=== PATIENT | male | born 1940 | race Caucasian/White ===

== ENCOUNTER 2017-07-23 12:45 | Outpatient (CLI) ==
--- NOTE | 2017-07-27 08:34 | HOLTER ---
PATIENT INFORMATION AND COMMENTS Attending Physician: SULEIMAN BROCK Indications: PVC'S __ Patient Medications: METFORMIN, NORCO, VITAMINS __ Pre-procedure Summary: Protocol: Standard Heart Rate Started: 07/23/17 1305 Minimum: 61 BPM Weight: 220 LBS Ended: 07/24/17 1209 Maximum: 137 BPM Height: 70" Duration: 23 HRS Average: 77 BPM _ INTERPRETATIONS/OBSERVATIONS: 1. BASIC RHYTHM: SINUS, RATE 60 BPM TO 135 BPM, AVERAGE 77 BPM 2. INFREQUENT PVC'S --ISOLATED 3. PAC'S --3% OF TOTAL BEATS SCANNED, NO ATRIAL TACHYARRHYTHMIAS 4. NO ST-T WAVE CHANGES FROM BASELINE 5. ACTIVITY LOG NOT MAINTAINED MTDD
== END 2017-07-23 12:46 | disposition home or self-care (01) ==
LOC: CAR 12:45
PROVIDERS: ATTEND Internal Medicine
DX: I49.3 Ventricular premature depolarization (principal)
CPT/HCPCS: 93005; 93010; 93227

== ENCOUNTER 2017-12-25 11:28 | Inpatient (IN) ==
[~2017-12-25 11:28] MED LIST: OXYCODONE PO PRN
[2017-12-25 12:41] VITALS: BMI 32.4
[2017-12-25] MEDS: OXYCODONE PO PRN ×2 (12:52→20:43)
[2017-12-25] MEDS ORDERED: NON-FORMULARY MEDICATION (Omega-3 Fatty Acids/Fish Oil [Fish Oil 1,000 Mg Capsule] 1,000 M PO SCH (15:00)
--- NOTE | 2017-12-25 15:59 | RS.PTINEVL ---
Subjective - Patient information Date of Evaluation: 12/25/17 Date of Arrival on Unit: 12/25/17 Admitted From:: Facility Transfer (from [facility]) Diagnosis: S/P left TKA on 12/21/17 Usual Living Arrangement: With Spouse Home Environment: House, Stairs (few), Rail Medical History: Diabetes (NIDDM) Medical History Comments:: Head injury in 1997 has left him with slurred speech and poor memory. Surgical History Comments:: right knee arthroscopy, Bilateral cataract sx 2016 Subjective Information/ Patient Comments:: Patient reports pain in both knees. Left knee hurts worse. States he did have pain medication approximately 1.5 hours ago. State she has burning in the jones surface of the left heel. States right knee is bad and will also require a TKA. - Level of function Prior to this admission, the patient could do the following:: Independent Selfcare, Independent ADL's, Independent Ambulation Current Level of Function: Partially Dependent Current Equipment Used at Home: None Interventions - Objective Patient Orientation: Person, Place, Time, Situation Observation: Left knee presents with clean incision. No drainage noted. Demonstrates bruising at the posterior distal thigh and posterior aspect of the knee joint. Sock removed and no redness or discoloration to the left heel is noted. Range of Motion - ROM Right Upper Extremity AROM: WFL's Left Upper Extremity AROM: WFL's Right Lower Extremity AROM: Slight limitation (right knee full extension to 100 degrees flexion) Left Lower Extremity AROM: Moderate limitation (Left knee -10 extension to 60 flexion) Muscle Strength - Muscle Strength Comments:: Right LE: hip 5/5, knee 4/5, ankle 4+/5. Left LE: hip 4+/5, knee 3+/ 5, ankle 4 to 4+/5. Sensation - Sensation Right Lower Extremity Sensation: Intact/Normal Left Lower Extremity Sensation: Intact/Normal Balance - Sitting Balance and Reactions Static Sitting Balance: Good Dynamic Sitting Balance: Good Sitting Equilibrium Reactions: Within Normal Limits Left, Within Normal Limit Right Sitting Protective Reactions: Within Normal Limits Left, Within Normal Limit Right - Standing Balance and Reactions Static Standing Balance: Fair (-) Dynamic Standing Balance: Fair (-) Functional Mobility - Bed Mobility Scooting: Min Assist, 1 person assist, Verbal Cues, Tactile Cues Supine to Sit: Min Assist, Mod Assist, Tactile Cues Sit to Supine: Mod Assist, 1 person assist, Verbal Cues, Tactile Cues Comments:: Patient given assistance with Left LE for bed mobility. - Transfers Sit to Stand: Mod Assist, 2 person assist, Verbal Cues, Tactile Cues Stand to Sit: Min Assist, Mod Assist, 1 person assist, Verbal Cues, Tactile Cues Stand Pivot Transfers: Min Assist, Mod Assist, 1 person assist, Verbal Cues, Tactile Cues Comments:: Patient demonstrates a great deal of difficult coming to stand at walker. Reports this is because both knees hurt so much. He stayed bent over, appearing to be straining for a while, before finally standing upright and appearing less stressed. - Safety Awareness Safety Awareness: Fair IVETTE INDEX SCORE: 10 Ambulation - Ambulation Weight Bearing Status: FWB Assistive Device Used: Rolling Walker Distance: 4-6 feet Assistance needed with Ambulation: Min Assist, Mod Assist, 2 person assist, Verbal Cues, Tactile Cues Gait Deviations: Shuffling gait, Step-to gait, Forward posture, Short stride, Lacks step continuity Ambulation Comments: Patient takes very small, quick steps. Unable to tolerate full weight bearing on either leg very long. Factors Affecting Ambulation: Decreased Balance, Pain, Weakness, Decreased ROM, Decreased Safety, Limited Endurance Treatment time - Time with patient Total treatment time: 24 (mins) Patient Education - Education Patient Education: Education of diagnosis Teaching Recipient: Patient Teaching Methods: Teach Back Method Used, Discussion, Demonstration Assessment - Assessment Problem List:: Decreased level of function, Requires training/education, Decreased safety/Risk of falls, Weakness, Pain limits previous level of function Rehab Potential: Good Further Therapy Indicated?: Yes Evaluation Complexity: HISTORY: Medium (previous head injury, bilateral knee pain), EXAM OF BODY SYSTEMS: Medium (limited bed mobility, transfers, amb, stairs), CLINICAL PRESENTATION: Medium, CLINICAL DECISION MAKING: Medium Short Term Goals GOAL #1: Sit to stand with min asst of one with VC's. Goal to be met by: 12/29/17 GOAL #2: Supine to sit with min asst of one with VC and tactile cues. Goal to be met by: 12/29/17 GOAL #3: Amb with RW 40 feet with min asst of one with good step length. Goal to be met by: 12/30/17 [facility] Goals GOAL #1: All bed mobility independent. Goal to be met by: 01/08/18 GOAL #2: All transfers independent, with good safety. Goal to be met by: 01/08/18 GOAL #3: Amb. with RW, independent, household distances with good safety. Goal to be met by: 01/08/18 Plan Plan of Care: Therapeutic EX, Therapeutic Activity, Self-Care/Home Management Modalities: Cold Pack/Cryotherapy Frequency of Treatment: 1-2 X day, as tolerated Duration of Treatment: 2 Weeks Anticipated Discharge Destination: Home Has the Physician been added for Co-signature?: Yes
[2017-12-25] MEDS: OMEGA-3 FISH OIL PO SCH ×2 (16:21→20:42)
[2017-12-25] MEDS: GLUCOPHAGE PO SCH (17:17)
[2017-12-25] MEDS: XARELTO PO SCH (17:18)
[2017-12-25] MEDS ORDERED: NON-FORMULARY MEDICATION (Metformin Hcl [Glucophage] 1,000 MG) PO SCH (17:30)
[2017-12-26] MEDS: OXYCODONE PO PRN ×2 (05:31→09:36)
[2017-12-26] MEDS: SYNTHROID PO SCH (06:02)
[2017-12-26] MEDS: GLUCOPHAGE PO SCH ×2 (08:38→17:15)
[2017-12-26] MEDS: OMEGA-3 FISH OIL PO SCH ×3 (08:38→20:33)
[2017-12-26] MEDS: VITAMIN D PO SCH (08:38)
[2017-12-26] MEDS ORDERED: NON-FORMULARY MEDICATION (Omega-3 Fatty Acids/Fish Oil [Fish Oil 1,000 Mg Capsule] 1,000 M PO SCH (09:00)
[2017-12-26] MEDS ORDERED: NON-FORMULARY MEDICATION (Levothyroxine Sodium [Synthroid] 200 MCG) PO SCH (09:00)
--- NOTE | 2017-12-26 16:59 | CT ---
EXAM: CT chest without contrast TECHNIQUE: Helical axial CT of the chest was performed without contrast with coronal and sagittal rec onstructions. COMPARISON: None HISTORY: Congestion FINDINGS: Lung parenchyma: There is no mass or nodule or large effusion or infiltrate. There is some minimal bi basilar scarring and/or atelectasis. Mediastinum: There are a few scattered mediastinal lymph nodes which are not particularly enlarged. T here are advanced coronary calcifications. There is no pericardial effusion. There is calcific athe rosclerosis of the aorta. There is no thoracic aortic aneurysm. Upper Abdomen: The proximal aspect of the infrarenal abdominal aorta is somewhat prominent measuring 3.1 cm. There is calcific atherosclerosis. There is a small calcification in the gallbladder possi olivia a small calcified stone or some sludge. There is a small hiatal hernia. There is old granulomato us disease in the liver. Osseous structures: Nothing acute. There are old upper right rib fractures. There are multiple thora cic vertebral bodies demonstrate some minimal chronic appearing vertebral body height loss with nothi ng acute. Surrounding soft tissues including the thyroid gland are normal. No supraclavicular or axillary adeno louise. IMPRESSION: 1. No acute abnormality in the chest. Specifically the lungs are clear and there is no mass lesions . 2. 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 3. Calcified stone or sludge in the gallbladder which does not appear inflamed. 4. Other miscellaneous findings as above
[2017-12-26] MEDS: XARELTO PO SCH (17:15)
[2017-12-27] MEDS: OXYCODONE PO PRN ×2 (00:34→20:18)
[2017-12-27] MEDS: SYNTHROID PO SCH (06:05)
[2017-12-27] MEDS: VITAMIN D PO SCH (08:58)
[2017-12-27] MEDS: OMEGA-3 FISH OIL PO SCH ×3 (08:58→20:18)
[2017-12-27] MEDS: GLUCOPHAGE PO SCH ×2 (08:58→17:14)
[2017-12-27] MEDS: XARELTO PO SCH (17:14)
[2017-12-27] MEDS ORDERED: MIRALAX PO STA (18:29)
[2017-12-28] MEDS: OXYCODONE PO PRN ×4 (01:11→22:22)
[2017-12-28] MEDS: SYNTHROID PO SCH (05:54)
[2017-12-28] MEDS: OMEGA-3 FISH OIL PO SCH ×3 (08:19→20:17)
[2017-12-28] MEDS: VITAMIN D PO SCH (08:19)
[2017-12-28] MEDS: GLUCOPHAGE PO SCH ×2 (08:19→17:05)
--- NOTE | 2017-12-28 09:21 | PN ---
DATE OF VISIT: 12/26/17 SUBJECTIVE: The patient is alert with good color and no distress. The patient was in a supine posture when I walked into the room. FACE: Symmetrical and equal with no facial weakness. NECK: No masses and no bruit. HEART: Normal sinus rhythm. Audible with good tones. LUNGS: Clear to auscultation mostly in the left. There is rales on the right lower 1/3. There is no wheezing. The chest CT will be done since he is not able to stand up so a PA and lateral chest x-ray could not be done. ABDOMEN: Soft and not tender. There is no thickening of the abdominal wall. LOWER EXTREMITIES: Left lower extremity is edematous with ecchymosis from the groin down to the foot. Anterior tibial pulses are still palpable in left foot and the posterior and anterior tibials are present in the right. CONDITION:Stable Rales are persistent right lower lobe. Chest CT today with contrast. ANGLE
--- NOTE | 2017-12-28 13:42 | PN ---
DATE OF VISIT: 12/27/17 SUBJECTIVE: 77 year old male admitted to [facility] post left TKR. The patient is alert and oriented times four, not dyspneic or tachypneic. The patient was snoring when I walked into the room after 6:00 this afternoon. Respirations were regular while he was sleeping. VITAL SIGNS: Temperature 97.5, pulse 91, blood pressure 144/73, respiratory rate 14, oxygen saturation 94 at room air. This patient early in the day had a 99.4 and yesterday afternoon had a temperature of 100 orally at 6:00pm. HEART: Audible and regular with good tones LUNGS: Fewer rales of the right lower base. CT chest did not show any pneumonic infiltrates LOWER EXTREMITIES: Left leg swelling is less. The swelling in the thigh also is less. No signs of infection in the incision. The patient had not had a bowel movement so he prescribed one dose of Miralax today. MTDD
--- NOTE | 2017-12-28 15:16 | HP ---
CHIEF COMPLAINT: Rehabilitation post left total knee replacement. SOURCE OF HISTORY: Patient and also records from the operating doctor. HISTORY OF PRESENT ILLNESS: The patient claimed to have had so much difficulty ambulating with the left knee. He can ambulate a very short distance with a prior narcotic analgesic medication. He did undergo left total knee replacement last Thursday, five days ago. The patient was transferred to this facility for rehabilitation. The patient was supposed to be transferred yesterday,however, because of the swelling of the left lower extremity involving the thigh, knee as well as leg and foot prevented the transfer. Doppler studies were done to rule out any DVT and the studies were negative for any thrombosis of the deep system. He was then transferred to this facility for the physical therapy and rehabilitation. PAST PERSONAL HISTORY: The patient had previous bilateral cataract surgery in 2016. The patient had an incident where a horse fell on him in 1997 producing a head injury. The patient had some palpitations, but did not know the diagnosis. The patient had a history of pneumonia in 1989 and also infrequent indigestion, plus umbilical hernia. He had a ankle sprain in . He had surgery to the left knee 12/21/17, as well as arthroscopy of the right knee. He is type II diabetes. He stopped smoking since 1985. He drinks 3 to 4 cans of beer every other day. The patient did have a colonoscopy more than 5 years ago. FAMILY HISTORY: Sister had hypertension, fibromyalgia and rheumatoid arthritis. History of his father is unknown to him. Mother had questionable lung carcinoma, TIA and at age 86. SOCIAL HISTORY: The patient is and resides with his . He stopped smoking in 1985, but still drinks alcohol three to four cans every other day. MEDICATIONS: Prior to admission to this hospital consisted of: Metformin 1000 mg twice a day Levothyroxine 200 mcg daily Vitamin D3 1,200 units daily Viagra 100 mg prn [place] 3 fatty acid 1,000 mg three times a day ALLERGIES: No known drug allergies. REVIEW OF SYSTEMS: CONSTITUTIONAL: The patient is alert with no fever and no chills. He is somewhat fatigued because of the operation. 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 VISUAL: Denies any blurred vision, double vision or transient loss of vision. AUDITORY: The patient's hearing is adequate and he denies any tinnitus, pain or drainage. RESPIRATORY: Denies any cough. No shortness of breath at supine. CARDIOVASCULAR: Denies any chest pain or chest tightness. GASTROINTESTINAL: Appetite is somewhat decreased, probably from the surgery, but no abdominal pain or change in bowel habits and no diarrhea. GENITOURINARY: Denies any frequency of urination, as well as pain. ENDOCRINE: The patient has no symptoms, but he has type II diabetes mellitus. INTEGUMENT: The patient has shinny skin on the left lower extremity from the edema, post TKR left side. There is no rash and no pruritus. HEMATOLOGIC: No history of prolonged bleeding from injuries. PSYCHIATRIC: Affect is normal. PHYSICAL EXAMINATION: GENERAL: We have a 77 year old male admitted to this facility for rehabilitation, post left TKR. VITAL SIGNS: On admission at 11:46 a.m. on 12/25/17 showed a temperature of 98.8 , orally, pulse of 88, blood pressure left 130/60, right 134/60, respiratory rate 16, no oxygen saturation done at that time. He is 5'9" and 219 pounds and 9.28 ounces. HEAD: Unremarkable. FACE: Symmetrical and equal with no redness and no facial weakness. EYES: Pupils equal/reactive to light. Conjunctivae not pale. Sclerae not icteric. MOUTH: Unremarkable. THROAT: No inflammation, tumors or exudate. NECK: No masses. No bruit. No tenderness. No rigidity. No venous distention at about 15 degree head elevation. CHEST: Symmetrical and equal with good expansion. LUNGS: Rales on the right lower one third, no wheezing. Breath sounds are slightly diminished. HEART: Audible and regular with good tones. No murmurs. ABDOMEN: Soft with no remarkable tenderness. No guarding. Bowel sounds are active. No masses palpable. EXTERNAL GENITALIA: Not examined. RECTAL: Not performed. LOWER EXTREMITIES: The right lower extremity has no edema. The anterior/ posterior tibials are palpable. The left lower extremity is edematous including the thigh down to the foot. Anterior tibial is present. A posterior tibial is difficult to palpate because of the significant edema. ASSESSMENT: 1. DEGENERATIVE OSTEOARTHRITIS LEFT KNEE, STATUS POST LEFT TOTAL KNEE REPLACEMENT FIVE DAYS AGO 2. DIABETES MELLITUS TYPE II 3. HISTORY OF HYPOTHYROIDISM, REPLACED. 4. HISTORY OF ERECTILE DYSFUNCTION 5. ELEVATED BMI OF 32.4. MTDD
--- NOTE | 2017-12-28 15:59 | RS.OTINEVL ---
Subjective - Patient information Date of Evaluation: 12/28/17 Date of Arrival on Unit: 12/25/17 Admitted From:: Facility Transfer (from [facility]) Usual Living Arrangement: With Spouse Living Arrangement Comments: Pt lives at home with his and says she will not help him. Home Environment: House, Stairs (few), Rail Medical History: Diabetes (NIDDM) Medical History Comments:: Head injury in 1997 has left him with slurred speech and poor memory. Surgical History: Knee Replacement Surgical History Comments:: right knee arthroscopy, Bilateral cataract sx 2016 Subjective Information/ Patient Comments:: "I was going to have the other knee done." - Level of function Prior to this admission, the patient could do the following:: Independent Selfcare, Independent ADL's, Independent Ambulation Current Level of Function: Dependent Current Equipment Used at Home: None Pain Assessment - Pain Pain Score: 6 Side: left Pain Location Body Site: Knee Pain Aggravating Factors: ADL's, Changing Position, Standing, Sitting, Walking Pain Alleviating Factors: Ice, Medication Interventions - Objective Patient Orientation: Person, Place, Time, Situation Observation: Pt LUE knee was placed on a pillow and patient' foot has pitting Edema. Pt was placed with an cold pack on the back of the knee due to edema. Interventions - ROM Right Upper Extremity AROM: WFL's Left Upper Extremity AROM: WFL's - Strength Right Upper Extremity Strength: Mild Weakness Left Upper Extremity Strength: Mild Weakness - Sensation Right Upper Extremity Sensation: Intact/Normal Left Upper Extremity Sensation: Intact/Normal Balance - Sitting Balance Static Sitting Balance: Fair Dynamic Sitting Balance: Fair - Standing Balance Static Standing Balance: Poor Dynamic Standing Balance: Poor - Comments Balance Assessment Comments: Pt having difficulty putting the Left heel on the floor. Balance is poor. ADL Skills - Self Feeding Self Feeding: Independent - Grooming Grooming: CGA - Bathing Bathing UE: Min Assist Bathing LE: Max Assist - Dressing Dressing UE: CGA Dressing LE: Mod Assist - Toilet Management Toileting Management: Max Assist, 2 person assist Functional Mobility - Bed Mobility Rolling R/L: CGA Scooting: CGA Supine to Sit: CGA Sit to Supine: CGA - Transfers Sit to Stand: Mod Assist, 2 person assist Stand to Sit: Mod Assist, 1 person assist Stand Pivot Transfers: Max Assist, 2 person assist - Ambulation Weight Bearing Status: WBAT Assistive Device Used: Standard Walker Assistance needed with Ambulation: Max Assist, 2 person assist - Safety Awareness Safety Awareness: Good IVETTE INDEX SCORE: 11 Additional Treatment Performed - Time with patient Total treatment time: 20 Activities Patient Interests:: Watching Television, Visiting/Socializing Patient Education Patient Education: Education of diagnosis, Body/Joint mechanics, Home Exercise Program, Home Safety, Education of Plan of Care Teaching Recipient: Patient Teaching Methods: Discussion Assessment Problem List:: Decreased level of function, Requires training/education, Decreased safety/Risk of falls, Weakness, Pain limits previous level of function Rehab Potential: Good Further Therapy Indicated?: Yes Evaluation Complexity: HISTORY: Medium, EXAM OF BODY SYSTEMS: Medium, CLINICAL DECISION MAKING: Medium Short Term Goals - Goals GOAL 1: Pt to complete functional mobility CGA with RW. Goal to be met by: 01/04/18 GOAL 2: Pt to increase BUE strength to 4+/5. Goal to be met by: 01/04/18 GOAL 3: Pt to be independent with dressing himself. Goal to be met by: 01/04/18 Goal to be met by: 01/04/18 Shelter Goals GOAL 1: Pt to complete functional mobility Mod-I with RW. Goal to be met by: 01/08/18 GOAL 2: Pt to be mod-I with self care management. Goal to be met by: 01/08/18 GOAL 3: Pt to complete 15 minutes of standing activity without LOB. Goal to be met by: 01/08/18 Plan Plan of Care: Therapeutic EX, Neuromuscular Re-Educ, Therapeutic Activity, Self- Care/Home Management Modalities: Cold Pack/Cryotherapy Frequency of Treatment: 1-2 X day, as tolerated Duration of Treatment: 2 Weeks Anticipated Discharge Destination: Home Has the Physician been added for Co-signature?: Yes
[2017-12-28] MEDS: XARELTO PO SCH (17:05)
[2017-12-29] MEDS: SYNTHROID PO SCH (05:48)
[2017-12-29] MEDS: GLUCOPHAGE PO SCH ×2 (08:47→17:09)
[2017-12-29] MEDS: OXYCODONE PO PRN ×2 (08:47→14:35)
[2017-12-29] MEDS: VITAMIN D PO SCH (08:47)
[2017-12-29] MEDS: OMEGA-3 FISH OIL PO SCH (09:00)
--- NOTE | 2017-12-29 09:34 | PN ---
DATE OF VISIT: 12/28/17 SUBJECTIVE: The patient is alert and feeling better. He did have physical therapy today and tolerated the therapy well. He is not dyspneic or tachypneic. HEART: Normal sinus rhythm, with good tones. LUNGS: Rales of the right lower base Chest CT was negative. This maybe a chronic problem. VITAL SIGNS: Temperature 97.7, pulse 86, blood pressure 140/64, respiratory rate 20, oxygen saturation 97at room air. The swelling in the knee is less as well as the leg. The foot is still shiny. The swelling in the thigh is also less and it is softer. This patient prior to transfer to this facility had Doppler studies on both lower extremities which were negative for deep venous thrombosis as well superficial venous thrombosis. CBC today showed hgb of 8.7, hct 25.6, WBC 10,640, normal electrolytes. EGFR 104 , albumin still low at 2.7, total protein 6.4, procalcitonin is less than yesterday now 0.08. IT was 0.14 the day before. Condition is stable and improved. The patient tolerating the rehabilitation post left TKR. ISABELLED
[2017-12-29] MEDS: MIRALAX PO SCH (14:06)
[2017-12-29] MEDS: XARELTO PO SCH (17:09)
[2017-12-29] MEDS: VITAMIN B-12 IM SCH (20:52)
[2017-12-30] MEDS: SYNTHROID PO SCH (05:37)
--- NOTE | 2017-12-30 08:06 | PN ---
DATE OF VISIT: 12/29/17 SUBJECTIVE: The patient is alert and oriented times four, not dyspneic or tachypneic and conversant. I asked him about his physical rehabilitation. He did recount the exercises that he did. He told me that he tolerated the rehabilitation. His heart is normal sinus rhythm. The left lower extremity swelling is less. His left leg is now almost at 180 degrees. Anterior tibial pulses of the left food is still good volume. There is no signs signs of any infection in the incision on the left anterior knee. VITAL SIGNS: Temperature 98.3, pulse 88, blood pressure 138/73, respiratory rate 20, oxygen saturation 99 at room air. Consumed 60% of his meals today. Sugar was 135. MTDD
[2017-12-30] MEDS: MIRALAX PO SCH (08:31)
[2017-12-30] MEDS: VITAMIN D PO SCH (08:32)
[2017-12-30] MEDS: OXYCODONE PO PRN ×3 (08:32→21:14)
[2017-12-30] MEDS: GLUCOPHAGE PO SCH ×2 (08:32→17:26)
[2017-12-30] MEDS: VITAMIN B-12 IM SCH (08:33)
[2017-12-30] MEDS: MAG-OX PO SCH ×2 (17:26→21:14)
[2017-12-30] MEDS: XARELTO PO SCH (17:27)
[2017-12-31] MEDS: OXYCODONE PO PRN ×5 (01:25→22:09)
[2017-12-31] MEDS: SYNTHROID PO SCH (05:32)
--- NOTE | 2017-12-31 08:09 | PN ---
DATE OF VISIT: 12/30/17 SUBJECTIVE: The patient is a 77 year old male who underwent left TKR and transferred to this facility for rehabilitation. The patient had physical therapy today and tolerated well. The patient did mentioned about the pain at the Achilles tendon radiating to the posterior leg with putting his foot on the floor. It is also present with dorsiflexion of the foot at supine posterior. This patient is already on Xarelto 10mg PO daily. There is no tenderness in the calk muscles to palpation. The swelling in the thigh, knee and legs is less. The patient is able to raise his left leg well on this own strength. LUNG: Clear to auscultation on both sides HEART: Normal sinus rhythm ABDOMEN: No remarkably tenderness This patient also according to his has some leg cramps. There are no vital signs done except the early in the morning at 5:18am 12/30/17; Temperature 99.6 , pulse 87, blood pressure 133/76, respiratory rate 20 and oxygen saturation 94 at room air. The oxygen saturation yesterday was 99% and had been fluctuating. The patient has 75% of his lunch today. He is not dyspneic or tachypneic and looks cheerful. MTDD
[2017-12-31] MEDS: MIRALAX PO SCH (09:40)
[2017-12-31] MEDS: VITAMIN D PO SCH (09:40)
[2017-12-31] MEDS: GLUCOPHAGE PO SCH ×2 (09:40→17:06)
[2017-12-31] MEDS: VITAMIN B-12 IM SCH (09:41)
[2017-12-31] MEDS: MAG-OX PO SCH ×2 (09:41→20:54)
--- NOTE | 2017-12-31 15:32 | US ---
EXAM: Left lower extremity venous doppler. HISTORY: Left leg pain and swelling, bruising. Previous left knee replacement. COMPARISON: None available. TECHNIQUE: Multiple grayscale and color doppler images were obtained. FINDINGS: There is normal flow, compressibility and augmentation of flow within the left common femo ral, greater saphenous, profunda, femoral, popliteal, posterior tibial, anterior tibial and peroneal veins. Within the deep subcutaneous tissues of the posterior leg just below the knee is an ovoid circ umscribed complex avascular collection measuring approximately 2 x 1.2 of 1.5 cm IMPRESSION: 1. No evidence for left lower extremity deep vein thrombosis at the levels examined. 2. Probable hematoma in the posterior soft tissues just below the knee.
[2017-12-31] MEDS: XARELTO PO SCH (17:06)
[2018-01-01] MEDS: OXYCODONE PO PRN ×5 (01:43→20:39)
[2018-01-01] MEDS: SYNTHROID PO SCH (05:42)
--- NOTE | 2018-01-01 07:56 | PN ---
DATE OF VISIT: 12/31/17 SUBJECTIVE: The patient is alert and is oriented times four. He seemed to move better. Mentioned that he had last night about 3:30 in the morning and the nurse would not give him pain medication. I did check with the nurse and he was given the pain medication at 1:30 and that is probably the reason why he did not any since it was ordered every 4 hours. I did tell him all the medications that he is getting here were ordered by the doctor that did the surgery. Still complaining of pain in the left lower extremity more so at the tendon of Achilles insertion. Dorsiflexion causes some pain. He does have some tenderness in the left posterior leg and so a Doppler studies was ordered to make sure that there is no blood clot. This patient is already receiving Xarelto 10mg daily. If there is a blood clot that this patient maybe given an increased dose of the Xarelto. HEART: Audible with good tones LOWER EXTREMITIES: Swelling of the thigh is less and it is softer including the leg. The is no active infection noted on the knee at the incisional site. VITAL SIGNS: Temperature 99, pulse 91, blood pressure 138/73, respiratory rate 16, oxygen saturation 95 at room air. He didn't eat any breakfast and lunch is not recorded. ADDENDUM: The results of the Doppler study to the left lower extremity. The Doppler is negative for DVT. This patient should continue the increasing rehab for the total knee replacement. ISABELLED
[2018-01-01] MEDS: GLUCOPHAGE PO SCH ×2 (09:48→18:07)
[2018-01-01] MEDS: MAG-OX PO SCH ×2 (09:48→20:39)
[2018-01-01] MEDS: MIRALAX PO SCH (09:48)
[2018-01-01] MEDS: VITAMIN B-12 IM SCH (09:49)
[2018-01-01] MEDS: VITAMIN D PO SCH (09:50)
--- NOTE | 2018-01-01 13:46 | ECHO2D ---
Date of Exam: 12/30/17 Ordering Physician: DR. MARLENE KING Room # : 110 Reason for Echo: EVALUATE LEFT VENTRICLE FUNCTION, LVH BY EKG M-Mode Normal Adult Results LV Dimensions Normal Adult Results AoV Opening excursions >1.6 >1.6 LVEDD-base- 3.5-5.8 4.6 Ao root dimensions 2.0-3.7 3.4 LVESD-base- 3.1-4.6 L. Atrium dimensions 1.9-3.8 4.6 Post. Wall thickness 0.8-1.1 1.4 IV septum (thickness) 0.7-1.2 1.4 Post. Wall excursion 0.72-1.3 NORMAL Septal motion NORMAL Systolic motion R. Ventricular cavity 1.5-2.0 NORMAL LVEF 60% 66% Paradoxical septal wall motion NORMAL 2-D : 2-D M Mode Echocardiogram was performed using apical four chamber and left parasternal long and short axis views. Mitral, tricuspid and aortic valves appear to be normal. Contractility of the left ventricle seems to be normal, so is the cavity size. Enlarged left atrial cavity size. Aortic root appears to be normal. There is no pericardial effusion. There is no thrombus noted in the left ventricular or left aortic cavity. No mitral valve prolapse noted. M-MODE: MV: NORMAL AV: NORMAL TV: NORMAL PV: CHAMBER SIZE: ENLARGED LEFT ATRIAL CAVITY WALL MOTION: NORMAL PERICARDIUM: NORMAL INTERPRETATION: 1. LEFT VENTRICULAR HYPERTROPHY 2. ENLARGED LEFT ATRIAL CAVITY 3. NORMAL VALVES 4. NORMAL LEFT VENTRICULAR CONTRACTILITY MTDD
--- NOTE | 2018-01-01 14:10 | CT ---
EXAM: CT head without contrast. HISTORY: Speech difficulty. Altered mental status. COMPARISON: 06/30/2009. TECHNIQUE: Multiple axial images of the brain were obtained from the skull base through the vertex w ithout intravenous contrast. Multiplanar reformats were provided. FINDINGS: There is no intracranial hemorrhage or extraaxial collection. The beltran-white differentiat ion is maintained without evidence for acute large vascular territory infarction. There are areas of periventricular and subcortical white matter low attenuation. Old left basal ganglia lacunar infarc tion noted. The cortical sulci and cerebral ventricles are symmetrically enlarged. The basal cister ns are well visualized. There is no hydrocephalus, mass effect, or midline shift. Right frontal sin us is nearly completely opacified. Possible polyp or retention cyst in the left maxillary sinus. Ot herwise, the paranasal sinuses and mastoid air cells are clear. The calvarium is intact. IMPRESSION: 1. No acute intracranial abnormality. 2. Chronic small vessel ischemic changes and atrophy.
--- NOTE | 2018-01-01 16:00 | US ---
Exam: Keith-scale and color Doppler ultrasonographic evaluation of the carotid arteries. Comparison: None available. Reason for exam: Altered mental status. FINDINGS: Atherosclerotic disease is seen within the right common carotid artery. The right ECA trent sures 0.9 meters per second Right CCA measures 0.7 / 0.1 meters per second. Right internal carotid artery peak systolic velocity measures 0.9 meters per second. Right internal carotid artery/CCA PSV ratio measures 1.2 Right internal carotid artery end-diastolic velocity measures 0.3 The right vertebral artery was not seen on the exam. Small to moderate amount of plaque is seen in the left internal carotid artery. The left ECA measures 0.7 meters per second The left CCA measures 0.7 / 0.1 meters per second. The left internal carotid artery peak systolic ve locity measures 0.7 meters per second The left internal carotid artery/CCA PSV ratio measures 1.1 The left internal carotid artery end-diastolic velocity measures 0.2 meters per second. There is antegrade left vertebral artery flow. Impression: 1. No significant stenosis is seen by peak systolic velocity measurements in either the right or lef t internal carotid arteries. 2. The right vertebral artery is not seen on the exam. 3. There is normal antegrade left vertebral artery flow.
[2018-01-01] MEDS: XARELTO PO SCH (18:07)
[2018-01-02] MEDS: OXYCODONE PO PRN ×4 (00:29→23:32)
[2018-01-02] MEDS: SYNTHROID PO SCH (05:34)
[2018-01-02] MEDS: MAG-OX PO SCH ×2 (09:26→21:02)
[2018-01-02] MEDS: VITAMIN B-12 IM SCH (09:26)
[2018-01-02] MEDS: GLUCOPHAGE PO SCH ×2 (09:26→17:35)
[2018-01-02] MEDS: MIRALAX PO SCH (09:26)
[2018-01-02] MEDS: VITAMIN D PO SCH (09:26)
[2018-01-02] MEDS: XARELTO PO SCH (17:35)
[2018-01-03] MEDS: SYNTHROID PO SCH (05:33)
[2018-01-03] MEDS: OXYCODONE PO PRN (05:35)
[2018-01-03] MEDS: VITAMIN B-12 IM SCH (08:04)
[2018-01-03] MEDS: VITAMIN D PO SCH (08:05)
[2018-01-03] MEDS: MIRALAX PO SCH (08:05)
[2018-01-03] MEDS: MAG-OX PO SCH ×2 (08:05→20:02)
[2018-01-03] MEDS: GLUCOPHAGE PO SCH ×2 (08:05→17:00)
[2018-01-03] MEDS: XARELTO PO SCH (17:00)
[2018-01-03] MEDS: COZAAR PO SCH (18:22)
[2018-01-04] MEDS: SYNTHROID PO SCH (05:46)
[2018-01-04] MEDS: GLUCOPHAGE PO SCH ×2 (09:20→17:03)
[2018-01-04] MEDS: COZAAR PO SCH (09:20)
[2018-01-04] MEDS: VITAMIN D PO SCH (09:20)
[2018-01-04] MEDS: MIRALAX PO SCH (09:20)
[2018-01-04] MEDS: VITAMIN B-12 IM SCH (09:20)
[2018-01-04] MEDS: MAG-OX PO SCH ×2 (09:20→21:27)
[2018-01-04] MEDS: OXYCODONE PO PRN ×3 (09:20→21:27)
[2018-01-04] MEDS: XARELTO PO SCH (17:03)
[2018-01-05] MEDS: OXYCODONE PO PRN ×3 (04:39→15:00)
[2018-01-05] MEDS: SYNTHROID PO SCH (05:36)
[2018-01-05] MEDS: VITAMIN D PO SCH (09:02)
[2018-01-05] MEDS: COZAAR PO SCH (09:02)
[2018-01-05] MEDS: MAG-OX PO SCH ×2 (09:02→20:55)
[2018-01-05] MEDS: VITAMIN B-12 IM SCH (09:02)
[2018-01-05] MEDS: GLUCOPHAGE PO SCH ×2 (09:02→16:56)
[2018-01-05] MEDS: MIRALAX PO SCH (09:03)
--- NOTE | 2018-01-05 10:44 | CONS ---
DATE OF SERVICE: 01/02/18 CONSULT FOLLOWUP SUBJECTIVE: 77 year old white male seen on consultation because of the patient's drowsiness and confusion. The patient is doing a lot better. The patient is up and about on his own, limping some. Complaining of pain in the left knee. REVIEW OF SYSTEMS: CONSTITUTIONAL: No night sweats. No fatigue, malaise, lethargy. No fever or chills. HEENT: Eyes: No visual changes. No eye pain. No eye discharge. ENT: No runny nose. No epistaxis. No sinus pain. No sore throat. No odynophagia. No ear pain. No congestion. RESPIRATORY: No cough, no congestion. No hemoptysis. CARDIOVASCULAR: No angina symptoms. No CHF symptoms. No atypical chest pain for CAD. No palpitations. No shortness of breath. GASTROINTESTINAL: No abdominal pain. No nausea or vomiting. No diarrhea or constipation. No hematemesis. No hematochezia. GENITOURINARY: No urgency. No frequency. No dysuria. No hematuria. No obstructive symptoms. No discharge. No pain. No significant abnormal bleeding. MUSCULOSKELETAL: No musculoskeletal pain. No joint swelling. No arthritis. NEUROLOGICAL: No headache. No neck pain. No syncope. No seizures. No dizziness. PSYCHIATRIC: Not anxious. No depression. No suicidal thoughts. No homicidal thoughts. SKIN: No rash. No lesions. No wounds. ENDOCRINE: No unexplained weight loss. No weight gain. HEMATOLOGIC/LYMPHATIC: No anemia. No purpura. No petechiae. No prolonged or excessive bleeding. No palpable lymph nodes. PHYSICAL EXAMINATION: GENERAL: The patient is oriented to time, place and person. VITAL SIGNS: Temperature 98, pulse 80, respiratory rate 15, blood pressure 138/ 86 and pulse ox 97%. HEENT: Head normocephalic, atraumatic. Eyes: Extraocular muscles are intact. Pupils are equal, round and reactive to light and accommodation. Ears: No lesions. Nose appeared normal. Throat: No exudate or erythema. NECK: Supple. No JVD, no carotid bruit. No lymphadenopathy or thyromegaly. LUNGS: Decreased breath sounds but clear to auscultation. Percussion note normal. Chest symmetrical. HEART: S1, S2, no S3. No murmurs. No cyanosis or clubbing. No ascites. Pulses: Dorsalis pedis and posterior tibial pulses +1 to +2 both sides. ABDOMEN: Soft. Nontender. Bowel sounds active. No CVA tenderness. No mass felt. EXTREMITIES: No edema. Full range of motion of all extremities, equal. NEUROLOGIC: No focal deficit. Cranial nerves II through XII are grossly intact. No headache, no double vision or headache. SKIN: Not dry. Intact. Turgor - normal. LYMPHATIC: No palpable lymph nodes/no lymphedema. MUSCULOSKELETAL: Normal joints with no swelling. Muscle tone is normal. LABS: Hgb 9.2, hct 27, WBC 13,000 normal differential. ASSESSMENT: 1. Drowsiness/Confusion likely from medication effect. RECOMMENDATIONS: 1. The patient is advised to back off. The patient is encouraged not to take too much of pain medications 2. Echocardiogram showed LVH with normal LV contractility with enlarged LA cavity. MTDD
--- NOTE | 2018-01-05 10:55 | CONS ---
DATE OF SERVICE: 01/03/18 CONSULT FOLLOWUP SUBJECTIVE: 77 year old white male hospitalized on the swing bed with left knee arthroplasty which has been progression well. He is sitting with his . He seems to be oriented to time, place and person. No drowsiness. REVIEW OF SYSTEMS: CONSTITUTIONAL: No night sweats. No fatigue, malaise, lethargy. No fever or chills. HEENT: Eyes: No visual changes. No eye pain. No eye discharge. ENT: No runny nose. No epistaxis. No sinus pain. No sore throat. No odynophagia. No ear pain. No congestion. RESPIRATORY: No cough, no congestion. No hemoptysis. CARDIOVASCULAR: No angina symptoms. No CHF symptoms. No atypical chest pain for CAD. No palpitations. No shortness of breath. GASTROINTESTINAL: No abdominal pain. No nausea or vomiting. No diarrhea or constipation. No hematemesis. No hematochezia. GENITOURINARY: No urgency. No frequency. No dysuria. No hematuria. No obstructive symptoms. No discharge. No pain. No significant abnormal bleeding. MUSCULOSKELETAL: No musculoskeletal pain. No joint swelling. No arthritis. NEUROLOGICAL: No headache. No neck pain. No syncope. No seizures. No dizziness. PSYCHIATRIC: Not anxious. No depression. No suicidal thoughts. No homicidal thoughts. SKIN: No rash. No lesions. No wounds. ENDOCRINE: No unexplained weight loss. No weight gain. HEMATOLOGIC/LYMPHATIC: No anemia. No purpura. No petechiae. No prolonged or excessive bleeding. No palpable lymph nodes. PHYSICAL EXAMINATION: GENERAL: The patient is oriented to time, place and person. VITAL SIGNS: Temperature 97.6, pulse 90, respiratory rate 16, blood pressure 156 /80 and pulse ox 97%. HEENT: Head normocephalic, atraumatic. Eyes: Extraocular muscles are intact. Pupils are equal, round and reactive to light and accommodation. Ears: No lesions. Nose appeared normal. Throat: No exudate or erythema. NECK: Supple. No JVD, no carotid bruit. No lymphadenopathy or thyromegaly. LUNGS: Decreased breath sounds but clear to auscultation. Percussion note normal. Chest symmetrical. HEART: S1, S2, no S3. No murmurs. No cyanosis or clubbing. No ascites. Pulses: Dorsalis pedis and posterior tibial pulses +1 to +2 both sides. ABDOMEN: Soft. Nontender. Bowel sounds active. No CVA tenderness. No mass felt. EXTREMITIES: No edema. Full range of motion of all extremities, equal. Left knee looks dry. Clear and no drainage. NEUROLOGIC: No focal deficit. Cranial nerves II through XII are grossly intact. No headache, no double vision or headache. SKIN: Not dry. Intact. Turgor - normal. LYMPHATIC: No palpable lymph nodes/no lymphedema. MUSCULOSKELETAL: Normal joints with no swelling. Muscle tone is normal. ASSESSMENT: 1. Borderline hypertension, systolic 2. Drowsiness, seems to have resolved was from drug effect 3. Echo showed LVH with Enlarged LA cavity, normal LV contractility 4. Anemia 5. History of diabetes RECOMMENDATIONS: 1. Start him on some antihypertensive medication with history of diabetes the best thing would be angiotensin receptor daniela, Cozaar 50mg Po daily CONDITION: Stable. MTDD
--- NOTE | 2018-01-05 11:25 | CONS ---
DATE OF CONSULTATION: 01/01/18 REASON FOR CONSULTATION/HISTORY OF PRESENT ILLNESS: 77 year old white male seen on consultation because of patient's drowsiness. The patient had left knee total replacement done at [facility] and was transferred here after after three days for physical therapy. The patient has been having hard time controlling the pain and the number of medications that he would take for the pain and still be able to do the physical therapy. The patient initially CT scan of the head done because of the possible speech problem which has it for number of years. CT scan of the head was practically negative for any acute neurological event. The patient recently had echocardiogram done which showed LVH with enlarged LA cavity, normal LV contractility and normal valves. His PFT is normal. REVIEW OF SYSTEMS: CONSTITUTIONAL: No night sweats. No fatigue, malaise, lethargy. No fever or chills. HEENT: Eyes: No visual changes. No eye pain. No eye discharge. ENT: No sinus drainage. No epistaxis. No sinus pain. No sore throat. No odynophagia. No ear pain. No congestion. RESPIRATORY: No cough, no congestion. No hemoptysis. No shortness of breath. CARDIOVASCULAR: No angina symptoms. No CHF symptoms. No atypical chest pain for CAD. No palpitations. No orthopnea. GASTROINTESTINAL: No abdominal pain. No nausea or vomiting. No diarrhea or constipation. No hematemesis. No hematochezia. GENITOURINARY: No urgency. No frequency. No dysuria. No hematuria. No obstructive symptoms. No discharge. No pain. No significant abnormal bleeding. MUSCULOSKELETAL: No musculoskeletal pain. No joint swelling. Complaining of left knee pain. NEUROLOGICAL: No headache. No neck pain. No syncope. No seizures. No dizziness. PSYCHIATRIC: Not anxious. No depression. No suicidal thoughts. No homicidal thoughts. SKIN: No rash. No lesions. No wounds. ENDOCRINE: No unexplained weight loss. No weight gain. HEMATOLOGIC/LYMPHATIC: No anemia. No purpura. No petechiae. No prolonged or excessive bleeding. No palpable lymph nodes. MEDICATIONS: Levothyroxine 200mcg Po daily Metformin 1,000 PO twice a day Xarelto 10mg daily ALLERGIES: No known allergies. PAST MEDICAL HISTORY: Hypothyroidism Diabetes mellitus Systolic hypertension LVH by echo PAST SURGICAL HISTORY: Left knee replacement Right knee arthroplasty Bilateral cataract surgery SOCIAL/PERSONAL/FAMILY HISTORY: The patient is and lives with the . Non smoker and no alcohol abuse. The patient quit smoking more than 20 years ago. Used to smoke more than 2 packs per day. He does all activity of daily living. PHYSICAL EXAMINATION: GENERAL: The patient is oriented to time, place and person, somewhat drowsy. VITAL SIGNS: Temperature 98.3, pulse 90, respiratory rate 20, blood pressure 148 /70 and pulse ox 95%. HEENT: Head normocephalic, atraumatic. Eyes: Extraocular muscles are intact. Pupils are equal, round and reactive to light and accommodation. Ears: No lesions. Nose appeared normal. Throat: No exudate or erythema. NECK: Supple. No JVD, no carotid bruit. No lymphadenopathy or thyromegaly. LUNGS: Clear to auscultation. Percussion note normal. Chest symmetrical. HEART: S1, S2, no S3. No murmurs. No cyanosis or clubbing. No ascites. Pulses: Dorsalis pedis and posterior tibial pulses +1 to +2 both sides. ABDOMEN: Soft. Nontender. Bowel sounds active. No CVA tenderness. No mass felt. EXTREMITIES: No edema. Full range of motion of all extremities, equal. Left knee which is mildly swollen. The incision site looks normal with no discharge. Ecchymotic area noted on the left lower thigh and left anterior part of the weiss which is fading. NEUROLOGIC: No focal deficit. Cranial nerves II through XII are grossly intact. No headache, no double vision or headache. SKIN: Not dry. Intact. Turgor - normal. LYMPHATIC: No palpable lymph nodes/no lymphedema. MUSCULOSKELETAL: Normal joints with no swelling. Muscle tone is normal. LABS: Hgb 9.2, hct 27, WBC 12,000 normal differential, creatinine 0.7, BUN 17, potassium 4.6, BNP 42 done on 12/26/17. TSH 0.130. ASSESSMENT: 1. Drowsiness, sleepiness with mental status fluctuations likely from medications 2. Hypothyroidism 3. Hypertension, labile which is systolic 4. LVH 5. Anemia, blood loss from surgery 6. Diabetes mellitus 7. Dyslipidemia 8. B12 deficiency 9. History of fatty liver 10.Metabolic syndrome 11.History of fibromyalgia RECOMMENDATIONS: 1. The patient explained about his level of pain and the medications required and I explained to him that he will have to balance it out in order to get maximum amount of physical therapy. He will have to have some pain because pain medication is making confused and not cooperative. He understands that he has to be very cooperative in order to get maximum amount of physical therapy. 2. His mental status is such that it is difficult to communicate with him at time. 3. According to the physical therapy the patient is progressing very well Thanks for referral, will follow. ANGLE
--- NOTE | 2018-01-05 11:54 | DI ---
EXAM: Left hip two views HISTORY: Pain COMPARISON: None. FINDINGS: Moderate degenerative changes are noted about the hip joint. There is no acute fracture o r dislocation. Surrounding soft tissues are unremarkable. IMPRESSION: Osteoarthritic degenerative changes without acute findings
--- NOTE | 2018-01-05 15:13 | PN ---
DATE OF VISIT: 01/01/18 SUBJECTIVE: 77-year-old male who is here for rehabilitation post left TKR. The nurse did call me today, January telling me that Mr. Mcginnis's speech is somewhat slurred and that he may be taking more medication. The order from the operating surgeon was Percocet 5 to 10 mg every four hours p.r.n. This patient had been getting 10 mg instead of 5. The patient, last night, woke up about midnight asking for pain medication but he was given pain medication at 10 o'clock in the evening. I had a conversation with him today and he did tell me that he felt like the Physical Therapy Department is telling him that he is behind schedule for rehab. Physical Therapy Department seemed to think that if he does have pain that he may not be able to exercise him as much. I did inform Mr. Mcginnis that there is just no way that he could have new pain during the course of the rehabilitation exercises. If that would be the case then he would be asleep. The pain may be intense at times during the course of the rehabilitation. The speech is slurred somewhat and sometimes not legible. That had been every since he came into the hospital. His lungs are clear today. Heart is normal sinus rhythm. Neck no masses or bruits. Consultation with Dr. Perry, [employer] was requested. He is also his primary provider. I did reduce the medication to just 5 every four hours Oxycodone. His labs today showed slightly increased WBC 13,440, hemoglobin 9.2, hematocrit 27.6, higher than previous; MCV 101.8, MCH 33.9. RDW 15.4. CMP sodium slightly lower but not clinically significant. C02 21, GFR 97, blood sugar 150, albumin still low at 2.9. CT scan of the head as well as doppler studies of the carotid were ordered. This patient is taking Xarelto 10 mg daily. The patient had pain in the left posterior leg area and Achilles and the Doppler was negative for any DVT. I did inform Mr. Mcginnis that physical therapy personal will push him in order to accomplish the rehabilitation. There is always pain associated during the course of rehabilitation. Vital signs early this morning, 5:54 a.m.: Temperature 98.3, pulse 99, Blood pressure 148/70, respiratory rate 20, oxygen saturation on room air 95. Swelling in the knee as well as leg and thighs is decreased. There is no obvious sign of any infection at the line of incision. MTDD
--- NOTE | 2018-01-05 15:16 | PN ---
DATE OF VISIT: 01/03/18 SUBJECTIVE: The patient today is alert, oriented times four. Speech is always with some impediment whether he is wide awake or not. Again, this began after a horse fell on him in 1997. OBJECTIVE: Lungs still has rales on the right, few squeaks on the left. No wheezing. Heart is audible with good tones. The left lower extremity in general has much less edema. The ecchymosis is also resolving and there is no sign of any infection in the incision. Conditin improved. MTDD
--- NOTE | 2018-01-05 15:23 | PN ---
DATE OF VISIT: 01/04/18 SUBJECTIVE: The patient today is alert, oriented times four, not dyspneic or tachypneic. His is with him. I asked him about the rehab workup today and he told me that it was painful. I did tell him that it would be painful for some time. The pain sometimes is very intense. I did encourage him to withstand the pain during the course of the rehab. The patient had a CBC today showing a normal WBC, 9,300, hemoglobin is now higher at 9.5, hematocrit 29.5. The patient's MCV and MCH is still above normal , upper limits of normal. Electrolytes are normal. Blood sugar is elevated slightly in the morning but the hemoglobin A1C is 4.7. Albumin 2.8, lower than previous. This patient is encouraged to eat more protein. This patient will be given supplement that is high in protein. Serum transferrin level is normal at 232. OBJECTIVE: Lungs again have rales on the right lower 1/3, no wheezing. Heart is normal sinus rhythm. The left lower extremity swelling is much less. Anterior tibial pulse is palpable. The patient still has less than 180 degrees. I encouraged him to try to withstand the pain if possible during the course of the rehabilitation. He had been walking. He was asking as well as his to when he could go home. I did tell them that it would be up to the physical therapy to give me the assessment that if he was able to get out of bed on his own and walk with a walker to the bathroom and back or even to the hallway that then he will be ready to go home. He has to be more or less independent. It would be nice if he goes home and there is somebody at home who will be with him during the first week. ANGLE
[2018-01-05] MEDS: XARELTO PO SCH (16:56)
[2018-01-06] MEDS: OXYCODONE PO PRN ×2 (01:51→06:08)
[2018-01-06] MEDS: SYNTHROID PO SCH (05:48)
--- NOTE | 2018-01-06 08:28 | PN ---
DATE OF VISIT: 01/05/18 SUBJECTIVE: 77 year old male who underwent left TKR and was admitted to this facility 12/25/17 for rehabilitation. The patient is doing well and the swelling of the left lower extremity is much less. The ecchymotic areas are also resolving. The patient is still complaining of pain in the knee as well as the hips. The hip was x-rayed today and showed no acute problems. The patient does have degenerative joint disease. The patient's appetite is good. VITAL SIGNS: Temperature 99.0 orally, pulse 98, blood pressure 152/73, respiratory rate 20 and oxygen saturation 94 at room air. LUNGS: Few rales of the basis on the right side. HEART: normal sinus rhythm Abdomen: Soft and nontender. Bowel sounds are active The patient's chemistries done today 01/06/16 showed slightly elevated sugar 135 fasting, total bilirubin 2.5 and had been elevated since admission probably secondary to the bleeding. AST is more or less stable about 42-43 upper normal 37. The patient's homocysteine level was high. The serum B12 was low initially but the patient is getting B12 injection daily. Another B12 determination was done not an order from me and was elevated and this due to the B12 injection. His WBC today was slightly elevated 12.48 from a normal yesterday of 9,300. His hgb is elevated now to 10.3 from 9.5 yesterday. The patient's MCV and MCH however has not changed remarkably but that is probably expected since he was just given B12 several days ago. Swelling of the left lower extremity decreasing and is seemingly tolerating the rehabilitation. CONDITION: Stable MTDD
[2018-01-06] MEDS: COZAAR PO SCH (08:46)
[2018-01-06] MEDS: VITAMIN D PO SCH (08:46)
[2018-01-06] MEDS: VITAMIN B-12 IM SCH (08:46)
[2018-01-06] MEDS: GLUCOPHAGE PO SCH ×2 (08:46→17:04)
[2018-01-06] MEDS: MAG-OX PO SCH ×2 (08:46→20:52)
[2018-01-06] MEDS: MIRALAX PO SCH (08:47)
--- NOTE | 2018-01-06 09:24 | PN ---
DATE OF VISIT: 01/02/18 SUBJECTIVE: The patient today is alert and oriented times four not dyspneic or tachypneic. He looks fairly well comfortable. I asked him about the pain and he said that the pain is more in the hip area rather than the knee. He rated the pain as three and 0-10 scale. He has more pain in the knee or in the back of the lower leg upon standing. Physical therapy had been working on it to improve the problem. He claimed that his appetite is good and he doesn't have chest pain or abdominal pain or neck pain. His speech always has some slurring which he had it ever since he was admitted to the hospital. I did talk to him about that and he told me that that began since 1997 after a horse fell on his head and he sustained some bleeding maybe subdural and intracerebral although there was no surgery. VITAL SIGNS: Temperature of 99.3 orally, pulse 88, blood pressure 145/66, respiratory rate 20 , oxygen saturation 99 at room air. General appearance is good, not dyspneic or tachypneic and no cyanosis. NECK: No bruit. The carotid Doppler status is negative for any significant stenosis. LUNGS: breath sounds are heard in both sides with rales mostly in the right lower 1/3 crepitant. No wheezing. HEART: Audible and regular with good tones. ABDOMEN: no tenderness LOWER EXTREMITY: Left lower extremity swelling is less and the ecchymosis is resolving slowly. The anterior tibial pulse on the left is palpable and maybe the posterior tibial. His appetite is good and eats 100% of lung yesterday and also the day before. He had 50% of lunch today. Rehabilitation is progressing but slowly. Encouraged to try cooperate with the physical therapist. I did tell him that he is going to have pain in the course of the rehabilitation. CONDITION: Stable. MTDD
[2018-01-06] MEDS: XARELTO PO SCH (17:04)
[2018-01-07] MEDS: SYNTHROID PO SCH (05:58)
[2018-01-07] MEDS: OXYCODONE PO PRN ×3 (06:09→14:38)
[2018-01-07 06:13] VITALS: BP 129/76; TEMP 99.1
[2018-01-07] MEDS: COZAAR PO SCH (08:56)
[2018-01-07] MEDS: MAG-OX PO SCH (08:56)
[2018-01-07] MEDS: MIRALAX PO SCH (08:57)
[2018-01-07] MEDS: GLUCOPHAGE PO SCH (08:57)
[2018-01-07] MEDS: VITAMIN D PO SCH (08:57)
[2018-01-07] MEDS: VITAMIN B-12 IM SCH (08:57)
--- NOTE | 2018-01-07 10:42 | PN ---
DATE OF VISIT: 01/06/18 Mr. Mcginnis is alert, oriented times four. His speech is about the same, somewhat slurred and difficult to understand at times. He is not dyspneic, nor tachypneic. He had rehabilitation treatment this morning and will also have another one this afternoon. He seemed to tolerate better the exercises. The swelling in the legs, left is much, much less, including the surgical site. The ecchymosis is receding and the total bilirubin is decreasing. LUNGS: Still has a few rales on the right lower base, more so medially. This is much less than the previous. No rales on the left side. HEART: Audible with good tones. VITAL SIGNS: At 6 o'clock this morning showed a temperature of 98.8, pulse 102 , blood pressure 139/73, respiratory rate 20, oxygen saturation 95 on room air. He did eat most of his meals today at noon. The patient's chemistry today is slightly abnormal, but improving. Total bilirubin now 2.2, albumin 2.9. This patient is getting supplementation twice a day. Blood sugar is 125 in the morning. His renal panel is normal. CONDITION: Stable and improving physically. ANGLE
--- NOTE | 2018-01-07 14:10 | CONS ---
The patient was seen on Consultation. The patient was seen total of 4 times. Including initial consultation. ANGLE
--- NOTE | 2018-01-07 14:11 | DS ---
PATIENT IDENTIFICATION: 77 year old male was admitted to this facility on Transitional Care after his surgery consisting of left total knee replacement. The patient was admitted to this facility on 12/25/17. HOSPITAL COURSE: The patient on admission was alert and responsive with moderate to marked swelling of the left lower extremity from the groin down to the foot. The patient had Doppler studies of both lower extremities showing no DVT on both lower extremities. The patient is on Xarelto 10 mg daily. The patient had rales on the right lower base and no wheezing. The chest x-ray does not indicate any pneumonitis. Initial lab was done on 12/26/17 since he was just admitted 12/25/17. The labs showed severe anemia with a hemoglobin of 8.2, hematocrit 23.9. MCV 101.7, MCH 34.9. Total bilirubin 2.8, vitamin B12 130 pg/ml, below normal. Homocystine was ordered and was elevated at 25.1. Vitamin B1 was 88, normal. The patient was continued on the medications ordered by the transferring facility. The patient was given Vitamin B12 1,000 mcg IM daily. The patient had tolerated the medication. The patient had improved remarkably with the rehabilitation and he is now able to get out of bed and to his walker. He is able to travel to the bathroom and back to his bed. He had rales initially on the right lower base and that has resolved at the time of discharge. The chest x-ray did not show any infiltrates. The patient's appetite remained good and he eats anywhere between 50 to 100% of the snacks and sometimes he did not like it. He is eating his meals otherwise. I asked the patient just before discharge when I visited him that if his activity is now adequate for him to be home and he told me that he got out of bed and got to his walker went to the bathroom and told the nurse to close the door and did what he needs to do and after he got done he pulled the cord for the nurses to come back. He didn't walk back to his bed. His wants to bring him home today and she will be taking off from work beginning tomorrow and the rest of the week towards to the whole next week. I did advise him not to use any depends or even jocks while he is at home to facility his movement to the bathroom and out of the bathroom and back to his bed or chair. He should be moving more frequently at home and do his exercises that he had been doing with the physical therapy. Home Health will be coming to his house at least three times a week to do physical therapy. VITAL SIGNS: On discharge at 6 a.m. on 01/07/18 showed a temperature of 99.1, pulse 100, blood pressure 120/76, respiratory rate 12, oxygen saturation 94 at room air. Previous to that it was 98 the day before. The patient is alert with movement of all extremities with no facial weakness and no tenderness in the frontal or maxillary sinus areas. HEART: Audible with good tones. LUNGS: The lungs are now clear to auscultation including the right base. The patient does not have any significant tenderness now in the Achilles insertion tendon of the left leg. This patient had another Doppler study because of the pain on the insertion of the tendon Achilles, as well as tenderness in the calf muscles. There was no DVT demonstrated. He is to continue all of his medications. Stop the Xarelto as instructed. He would have more of the tablets of Xarelto at the time that he would stop it and that should be made clear and I did tell him that also and I did advise the nurse to make sure that the is advised of this. FINAL DIAGNOSES: 1. OSTEOARTHRITIS LEFT KNEE, SEVERE. STATUS POST LEFT TOTAL KNEE REPLACEMENT. 2. SEVERE ANEMIA, PROBABLY SECONDARY TO BLOOD LOSS. 3. ELEVATED MCV AND MCH, PROBABLY CONTRIBUTING TO THE ANEMIA. 4. TYPE II DIABETES MELLITUS 5. HYPOTHYROIDISM, REPLACED. 6. HISTORY OF ERECTILE DYSFUNCTION 7. SLURRED SPEECH, CHRONIC. CT SCAN OF THE HEAD WAS DONE SINCE THERE WAS MAYBE SOME INCREASE ACCORDING TO THE NURSE. PLAN: 1. This patient was instructed to follow up with the operating surgeon, as well as Dr. Perry. ANGLE
== END 2018-01-07 15:50 | disposition home or self-care (01) | DRG 560 ==
LOC: MEDSURG A 11:28
PROVIDERS: ADMIT General Practice; ATTEND General Practice
DX: Z47.1 Aftercare following joint replacement surgery (principal); D62 Acute posthemorrhagic anemia; Z96.652 Presence of left artificial knee joint; R09.89 Other specified symptoms and signs involving the circulatory and respiratory systems; M17.12 Unilateral primary osteoarthritis, left knee; R47.81 Slurred speech; R71.8 Other abnormality of red blood cells; I10 Essential (primary) hypertension; E11.9 Type 2 diabetes mellitus without complications; I51.7 Cardiomegaly; E03.9 Hypothyroidism, unspecified; E78.5 Hyperlipidemia, unspecified; E53.8 Deficiency of other specified B group vitamins; K76.0 Fatty (change of) liver, not elsewhere classified; E88.81 Metabolic syndrome and other insulin resistance; M79.7 Fibromyalgia; M79.662 Pain in left lower leg; M25.552 Pain in left hip; R40.0 Somnolence; T50.905A Adverse effect of unspecified drugs, medicaments and biological substances, initial encounter; Y92.231 Patient bathroom in hospital as the place of occurrence of the external cause; Z79.84 Long term (current) use of oral hypoglycemic drugs; Z79.899 Other long term (current) drug therapy; Z87.81 Personal history of (healed) traumatic fracture
CPT/HCPCS: 36415; 80053; 82310; 82607; 82728; 82746; 82962; 83036; 83090; 83540; 83550; 83735; 83880; 84132; 84145; 84425; 84443; 84466; 85007; 85025; 85045; 87081; 94150; 97802

== ENCOUNTER 2019-09-29 11:07 | Inpatient (IN) ==
--- NOTE | 2019-09-29 12:02 | DI ---
EXAM: Frontal view HISTORY: Cough. FINDINGS: Prominent heart size. Multiple fluffy infiltrates bilaterally are present. There is no v isible pleural fluid or definite central vascular congestion. There is no pneumothorax IMPRESSION: 1. Bilateral infiltrates, concern for significant pneumonia.
[2019-09-29] MEDS ORDERED: ROCEPHIN 1 GM/50 ML D5W 1 GM/50 ML BAG IV STA (13:16)
[2019-09-29] MEDS ORDERED: SOLU-MEDROL 125 MG IVP STA (13:16)
[2019-09-29] MEDS ORDERED: ZITHROMAX PO STA (13:16)
[2019-09-29] MEDS ORDERED: SODIUM CHLORIDE 1,000 ML IV SCH (13:30)
[2019-09-29] MEDS ORDERED: TYLENOL PO PRN (14:40)
[2019-09-29] MEDS ORDERED: NON-FORMULARY MEDICATION (Oxycodone 5 MG) PO PRN (14:46)
[2019-09-29 15:04] VITALS: BMI 35.4
[2019-09-29] MEDS ORDERED: OXYCODONE PO PRN ×2 (15:04→15:45)
[2019-09-29] MEDS: SODIUM CHLORIDE 1,000 ML IV SCH (16:17)
[2019-09-29] MEDS: LOVENOX SUBCUT SCH (16:18)
[2019-09-29] MEDS: MICARDIS PO SCH (16:29)
[2019-09-29] MEDS: VITAMIN D PO SCH (16:29)
[2019-09-29] MEDS: GLUCOPHAGE PO SCH (16:55)
[2019-09-29] MEDS: DUONEB NEB SCH (20:00)
[2019-09-29] MEDS: FLOMAX PO SCH (20:35)
[2019-09-29] MEDS: SOLU-MEDROL 125 MG IVP SCH (20:35)
[2019-09-30] MEDS: SODIUM CHLORIDE 1,000 ML IV SCH ×2 (02:04→16:01)
[2019-09-30] MEDS: DUONEB NEB SCH ×4 (04:25→21:15)
[2019-09-30] MEDS: SYNTHROID PO SCH ×2 (05:52)
[2019-09-30] MEDS: SOLU-MEDROL 125 MG IVP SCH ×3 (05:52→21:28)
[2019-09-30] MEDS ORDERED: FLOMAX PO SCH (09:00)
[2019-09-30] MEDS ORDERED: SODIUM CHLORIDE 1,000 ML IV SCH (09:00)
[2019-09-30] MEDS ORDERED: SYNTHROID PO SCH (09:00)
[2019-09-30] MEDS: GLUCOPHAGE PO SCH (09:05)
[2019-09-30] MEDS: ROCEPHIN 1 GM/50 ML D5W 1 GM/50 ML BAG IV SCH (10:32)
[2019-09-30] MEDS: VITAMIN D PO SCH (10:33)
[2019-09-30] MEDS: FLOMAX PO SCH ×2 (10:33→21:29)
[2019-09-30] MEDS: PROSCAR PO SCH (10:33)
[2019-09-30] MEDS: LOVENOX SUBCUT SCH (10:34)
[2019-09-30] MEDS: ZITHROMAX PO SCH (10:34)
[2019-09-30] MEDS: MICARDIS PO SCH (10:34)
--- NOTE | 2019-09-30 10:54 | CT ---
EXAM: CT ABDOMEN AND PELVIS HISTORY: Epigastric pain, history of abdominal aneurysm. TECHNIQUE: CT abdomen and pelvis with and without intravenous contrast. Images were reconstructed u sing 5 mm section thickness. Reformations were prepared. FINDINGS: No comparison CT abdomen and pelvis. The liver has peripheral margin serration, prominent caudate lobe and widened major fissures suggesti ng cirrhotic architecture. Spleen is prominent with a length of 14 cm. No focal hepatic or splenic lesions identified. Gallbladder is mildly distended. There are a few tiny gallstones. No obvious g allbladder wall thickening or surrounding inflammatory infiltration of the abdominal fat. Common campbell e duct is grossly unremarkable by CT. Pancreas is within normal limits. No adrenal nodules are seen . There is moderate atherosclerotic disease. Fusiform architecture of the infrarenal aorta measurin g up to 2.8 cm. Upper abdominal and paraesophageal varices are present. Stomach is within normal limits. Normal appendix and general bowel gas pattern. Moderate distal col on diverticulosis. Urinary bladder is unremarkable. The prostate has early lobulation of the periph eral contour. There is no ascites. There are small fatty bilateral inguinal hernias with coronal neck dimension of about 12 mm. There i s a tiny fatty umbilical hernia with a transverse neck of 5 mm. The bones reveal moderate to severe degenerative changes of the spine. Chronic pars defects bilaterally are present at L5 with about 3 m m of anterior listhesis of L4 on L5. Lung bases reveal multiple plaque and nodular like opacities wi thin the lungs. These are new since 12/26/2017 CT thorax. No pneumoperitoneum. IMPRESSION: 1. Hepatic cirrhosis with signs of portal venous hypertension. 2. Cholelithiasis with no definite gallbladder inflammation. 3. Fusiform architecture of the infrarenal aorta measuring minimally sub aneurysmal at 2.8 cm. Ather osclerotic disease. 4. Multiple plaque-like opacities throughout the lung bases may represent infection - pneumonia. Co rrelate clinically. Follow-up CT thorax is recommended. 5. Diverticulosis of the distal colon. 6. Early lobulation of the prostate contour.
[2019-09-30] MEDS: HUMULIN R SUBCUT PRN (21:37)
[2019-10-01] MEDS: SODIUM CHLORIDE 1,000 ML IV SCH ×3 (03:03→20:08)
[2019-10-01] MEDS: DUONEB NEB SCH ×4 (04:45→21:53)
[2019-10-01] MEDS: SOLU-MEDROL 125 MG IVP SCH ×3 (05:04→20:50)
[2019-10-01] MEDS: SYNTHROID PO SCH ×2 (05:38)
[2019-10-01] MEDS: HUMULIN R SUBCUT PRN ×4 (05:39→20:50)
[2019-10-01] MEDS: FLOMAX PO SCH ×2 (09:53→20:50)
[2019-10-01] MEDS: VITAMIN D PO SCH (09:53)
[2019-10-01] MEDS: ZITHROMAX PO SCH (09:53)
[2019-10-01] MEDS: PROSCAR PO SCH (09:53)
[2019-10-01] MEDS: ROCEPHIN 1 GM/50 ML D5W 1 GM/50 ML BAG IV SCH (09:53)
[2019-10-01] MEDS: LOVENOX SUBCUT SCH (09:54)
[2019-10-01] MEDS: MICARDIS PO SCH (09:54)
--- NOTE | 2019-10-01 15:13 | DI ---
Exam: Two-view chest x-ray. Date: 10/01/2019. Comparison: 09/29/2019. HISTORY: Shortness of breath. FINDINGS: No acute osseous abnormalities are seen. There are diffuse bilateral interstitial infiltr ates which demonstrates some interval improvement. Cardiac silhouette is enlarged. Impression: Persistent but improved diffuse bilateral interstitial infiltrates. Findings may repres ent an improving pneumonia. Cardiomegaly.
[2019-10-02] MEDS: DUONEB NEB SCH ×4 (04:25→20:36)
[2019-10-02] MEDS: SOLU-MEDROL 125 MG IVP SCH ×3 (05:50→20:30)
[2019-10-02] MEDS: SYNTHROID PO SCH ×2 (05:51)
[2019-10-02] MEDS: HUMULIN R SUBCUT PRN ×3 (06:41→20:31)
[2019-10-02] MEDS: VITAMIN D PO SCH (08:49)
[2019-10-02] MEDS: ROCEPHIN 1 GM/50 ML D5W 1 GM/50 ML BAG IV SCH (08:49)
[2019-10-02] MEDS: MICARDIS PO SCH (08:50)
[2019-10-02] MEDS: PROSCAR PO SCH (08:50)
[2019-10-02] MEDS: FLOMAX PO SCH ×2 (08:50→20:32)
[2019-10-02] MEDS: ZITHROMAX PO SCH (08:50)
[2019-10-02] MEDS: LOVENOX SUBCUT SCH (08:50)
[2019-10-02] MEDS: SODIUM CHLORIDE 1,000 ML IV SCH ×3 (10:00→22:03)
[2019-10-02] MEDS: GLUCOPHAGE PO SCH (18:04)
[2019-10-03] MEDS: DUONEB NEB SCH ×4 (04:20→20:15)
[2019-10-03] MEDS: SOLU-MEDROL 125 MG IVP SCH ×3 (06:12→20:33)
[2019-10-03] MEDS: SYNTHROID PO SCH ×2 (06:12)
[2019-10-03] MEDS: HUMULIN R SUBCUT PRN ×3 (06:24→20:33)
[2019-10-03] MEDS: ROCEPHIN 1 GM/50 ML D5W 1 GM/50 ML BAG IV SCH (08:36)
[2019-10-03] MEDS: LOVENOX SUBCUT SCH (08:37)
[2019-10-03] MEDS: VITAMIN D PO SCH (08:37)
[2019-10-03] MEDS: MICARDIS PO SCH (08:39)
[2019-10-03] MEDS: GLUCOPHAGE PO SCH ×2 (08:39→19:14)
[2019-10-03] MEDS: PROSCAR PO SCH (08:39)
[2019-10-03] MEDS: FLOMAX PO SCH ×2 (08:39→20:33)
[2019-10-03] MEDS: CORGARD PO SCH (10:36)
--- NOTE | 2019-10-03 14:43 | HP ---
DATE OF SERVICE: 09/29/19 REASON FOR HOSPITALIZATION/HISTORY OF PRESENT ILLNESS: This is a 79 year old year old white male who presented to the emergency room after calling the office saying that he was short of breath, had some pain with breathing. PAST MEDICAL HISTORY: Essential tremors Bilateral knee arthritis Dyslipidemia History of hepatic steatosis Metabolic syndrome Diabetes mellitus type 2, last A1c 6.3 on 08/23 B12 deficiency Hypothyroidism Megaloblastic anemia Fibromyalgia Right breast nipple nodule History of prostatitis Obesity Hypertension BPH Hypothyroidism PAST SURGICAL HISTORY: Bilateral total knee replacement REVIEW OF SYSTEMS: CONSTITUTIONAL: No night sweats. No fatigue, malaise, lethargy. No fever or chills. Weakness. HEENT: Eyes: No visual changes. No eye pain. No eye discharge. ENT: No runny nose. No epistaxis. No sinus pain. No sore throat. No odynophagia. No ear pain. No congestion. RESPIRATORY: Cough, no congestion. No hemoptysis. Shortness of breath. CARDIOVASCULAR: No angina symptoms. No CHF symptoms. Atypical chest pain for CAD. No palpitations. No PND. No orthopnea. GASTROINTESTINAL: No abdominal pain. No nausea or vomiting. No diarrhea or constipation. No hematemesis. No hematochezia. GENITOURINARY: No urgency. No frequency. No dysuria. No hematuria. No obstructive symptoms. No discharge. No pain. No significant abnormal bleeding. MUSCULOSKELETAL: No musculoskeletal pain. No joint swelling. No arthritis. NEUROLOGICAL: No headache. No neck pain. No syncope. No seizures. No dizziness. PSYCHIATRIC: Not anxious. No depression. No suicidal thoughts. No homicidal thoughts. SKIN: No rash. No lesions. No wounds. ENDOCRINE: No unexplained weight loss. No weight gain. HEMATOLOGIC/LYMPHATIC: No anemia. No purpura. No petechiae. No prolonged or excessive bleeding. No palpable lymph nodes. PERSONAL/FAMILY/SOCIAL HISTORY: He is lives with his at home. He is nonsmoker. No alcohol or illicit drug use. He quit smoking greater than 15 years ago. MEDICATIONS: Glucophage 1000mg PO BID Synthroid 125mcg PO daily Vitamin D 1200unit PO daily Viagra 100mg PO PRN Micardis 40mg PO daily Oxycodone 10mg TID PRN Finasteride 5mg PO daily Flomax 0.4mg PO BID ALLERGIES: No known allergies PHYSICAL EXAMINATION: GENERAL: The patient is alert and oriented times three. VITAL SIGNS: Temperature 97.7, heart rate 77, blood pressure 155/73 and pulse ox 83% on room air. 227 pounds. HEENT: Head normocephalic, atraumatic. Eyes: Extraocular muscles are intact. Pupils are equal, round and reactive to light and accommodation. Ears: No lesions. Nose appeared normal. Throat: No exudate or erythema. NECK: Supple. No JVD, no carotid bruit. No lymphadenopathy or thyromegaly. LUNGS: Diminished breath sounds bilaterally. Clear to auscultation. Percussion note normal. Chest symmetrical. The patient is visible short of breath. HEART: S1, S2, no S3. No murmur. No cyanosis or clubbing. No ascites. Pulses: Dorsalis pedis and posterior tibial pulses +1 to +2 bilaterally. ABDOMEN: Soft. Nontender. Bowel sounds active. No CVA tenderness. No mass felt. EXTREMITIES: No leg edema. Full range of motion of all extremities, equal. NEUROLOGIC: No focal deficit. Cranial nerves II through XII are grossly intact. No headache, no double vision or headache. SKIN: Not dry. Intact. Turgor - normal. Pale. LYMPHATIC: No palpable lymph nodes/no lymphedema. MUSCULOSKELETAL: Normal joints with no swelling. Muscle tone is normal. LABS: Chest x-ray in the emergency room shows bilateral lung infiltrates concerning for significant pneumonia. WBC 7.86, hgb 12.4, hct 37.5, plt count 231. Sodium 141, potassium 4.2, BUN 12.9, creatinine 1.0, AST 36, ALT 18. Alkaline phosphatase 111. Blood gas on room air O2 saturation 93%, pH 7.426, pCO2 28, pO2 65, bicarb 18.9, total CO2 20, base excess -5. ASSESSMENT: 1. Acute bilateral pneumonia 2. Shortness of breath 3. Hypertension PLAN: 1. We will admit to Special Care 2. Routine telemetry orders 3. CBC and CMP now and daily 4. Start Rocephin 1 gram IV daily 5. Zithromax 500mg PO daily times three days 6. Solu-Cortef 125mg IV Q 8 hours 7. DUO NEBS Q 6 hours scheduled. 8. Continue home medications 9. Normal saline IV at 75cc an hour 10.Regular diet 11.Oxygen 1-2 liters as needed 12.Repeat ABG's on 2 liters in one hour 13.Test for influenza A and B Will follow closely. TIME SPENT: More than 70 minutes. MTDD
--- NOTE | 2019-10-03 15:44 | US ---
EXAM: Ultrasound venous Doppler bilateral lower extremities HISTORY: Pain COMPARISON: None TECHNIQUE: Venous duplex ultrasound of the bilateral lower extremities was performed using color, gr ay-scale, and Doppler flow imaging. FINDINGS: There is normal color flow and compression of the bilateral common femoral, greater saphen ous, profunda femoral, femoral, popliteal, peroneal, posterior tibial, and anterior tibial veins with out evidence of intraluminal thrombus. No reflux is identified. IMPRESSION: No evidence of DVT within the bilateral lower extremities.
--- NOTE | 2019-10-03 17:12 | CT ---
EXAM: CTA of the chest. History: Coughing up blood. Comparison: Chest radiograph 10/01/2019, chest CT 12/26/2017 Technique: Multiplanar CT images through the thorax were obtained following administration of IV con trast. MIP images and 3-D reconstructions were also provided. Findings: Heart is enlarged. No pericardial effusion. Coronary calcifications. No pulmonary arter ial filling defects. Great vessels are unremarkable. There are enlarged mediastinal lymph nodes trent suring up to 1.8 cm and subcarinal lymph node measures 2.3 cm. No axillary lymphadenopathy. Multifo daya bilateral lung infiltrates have worsened compared to the recent chest radiograph. Some of the co nsolidation is nodular and some of the infiltrates are ground-glass with interlobular septal thickeni ng. Small bilateral pleural effusions. No pneumothorax. Within the visualized upper abdomen, cirrhotic liver and portal venous hypertension with varices. Mi ldly enlarged upper abdominal lymph nodes. No acute osseous abnormalities. Impression: 1. No pulmonary embolism. 2. Worsening bilateral lung infiltrates likely represents a combination of pulmonary edema and/or pn eumonia. 3. Small bilateral pleural effusions. 4. Coronary artery disease 5. Cirrhotic liver
[2019-10-03] MEDS ORDERED: LASIX IVP STA (18:33)
[2019-10-03] MEDS: DOXYCYCLINE HYCLATE PO SCH (19:06)
[2019-10-03] MEDS ORDERED: AZACTAM ONE (20:24)
[2019-10-03] MEDS: AZACTAM 1 GM in SODIUM CHLORIDE 50 ML IV SCH (20:32)
[2019-10-04] MEDS: DUONEB NEB SCH ×4 (04:45→19:55)
[2019-10-04] MEDS ORDERED: AZACTAM ONE (05:23)
[2019-10-04] MEDS: AZACTAM 1 GM in SODIUM CHLORIDE 50 ML IV SCH ×3 (05:27→21:01)
[2019-10-04] MEDS: SOLU-MEDROL 125 MG IVP SCH (05:28)
[2019-10-04] MEDS: SYNTHROID PO SCH ×2 (05:35)
[2019-10-04] MEDS: HUMULIN R SUBCUT PRN ×2 (06:00→17:28)
[2019-10-04] MEDS: DOXYCYCLINE HYCLATE PO SCH ×3 (07:00→21:00)
--- NOTE | 2019-10-04 07:48 | PN ---
DATE OF SERVICE: 09/30/19 SUBJECTIVE: 79 year old white male hospitalized with bilateral pneumonia. The patient's condition seems to have improved. He feeling better and breathing better. REVIEW OF SYSTEMS: CONSTITUTIONAL: No night sweats. No fatigue, malaise, lethargy. No fever or chills. HEENT: Eyes: No visual changes. No eye pain. No eye discharge. ENT: No runny nose. No epistaxis. No sinus pain. No sore throat. No odynophagia. No congestion. RESPIRATORY: Mild cough with congestion. No hemoptysis. No shortness of breath. CARDIOVASCULAR: No angina symptoms. No CHF symptoms. No atypical chest pain for CAD. No palpitations. No PND. No orthopnea. GASTROINTESTINAL: No abdominal pain. No nausea or vomiting. No diarrhea or constipation. No hematemesis. No hematochezia. GENITOURINARY: No urgency. No frequency. No dysuria. No hematuria. No obstructive symptoms. No discharge. No pain. No significant abnormal bleeding. MUSCULOSKELETAL: No musculoskeletal pain; no joint swelling. NEUROLOGICAL: No headache. No neck pain. No syncope. No seizures. No dizziness. PSYCHIATRIC: Not anxious. No depression. No suicidal thoughts. No homicidal thoughts. SKIN: No rash. No lesions. No wounds. ENDOCRINE: No unexplained weight loss. No weight gain. HEMATOLOGIC/LYMPHATIC: No anemia. No purpura. No petechiae. No prolonged or excessive bleeding. No palpable lymph nodes. PHYSICAL EXAMINATION: VITAL SIGNS: Temperature 98.1, pulse 84, respiratory rate 20, blood pressure 149/90 and pulse ox 91% on room air. HEENT: Head normocephalic, atraumatic. Eyes: Extraocular muscles are intact. Pupils are equal, round and reactive to light and accommodation. Ears: No lesions. Nose appeared normal. Throat: No exudate or erythema. NECK: Supple. No JVD, no carotid bruit. No lymphadenopathy or thyromegaly. LUNGS: Right sided crepitations but good air entry, left also has few dry crepitations. Percussion note normal. Chest symmetrical. HEART: S1, S2, no S3. No murmurs. No cyanosis or clubbing. No ascites. Pulses: Dorsalis pedis and posterior tibial pulses +1 to +2 bilaterally. ABDOMEN: Soft. Nontender. Bowel sounds active. No CVA tenderness. No mass felt. EXTREMITIES: Trace edema. Full range of motion of all extremities, equal. NEUROLOGIC: No focal deficit. Cranial nerves II through XII are grossly intact. No headache, no double vision or headache. SKIN: Not dry. Intact. Turgor - normal. LYMPHATIC: No palpable lymph nodes/no lymphedema. MUSCULOSKELETAL: Normal joints with no swelling. Muscle tone is normal. LABS: Hgb 12, hct 35, WBC 7,000 normal differential, creatinine 1, BUN 12 ASSESSMENT: 1. Acute pneumonia bilateral 2. CT scan of abdomen showed liver cirrhosis with portal hypertension, History of alcoholism quit more than 10 years ago and infrarenal aorta size is 2.6cm PLAN: 1. Continue IV antibiotics, steroids and NEBS. TIME SPENT: More than 30 minutes. Plan and coordination of the patient's care discussed in the presence of nurse. ANGLE
[2019-10-04] MEDS: ROCEPHIN 1 GM/50 ML D5W 1 GM/50 ML BAG IV SCH (09:02)
[2019-10-04] MEDS: PROSCAR PO SCH (09:03)
[2019-10-04] MEDS: FLOMAX PO SCH ×2 (09:03→21:00)
[2019-10-04] MEDS: VITAMIN D PO SCH (09:03)
[2019-10-04] MEDS: MICARDIS PO SCH (09:04)
[2019-10-04] MEDS: PREDNISONE PO SCH (09:05)
[2019-10-04] MEDS: LOVENOX SUBCUT SCH (09:19)
[2019-10-04] MEDS: PROTONIX PO SCH (09:22)
[2019-10-04] MEDS: CORGARD PO SCH (09:24)
--- NOTE | 2019-10-04 11:10 | PN ---
DATE OF SERVICE: 10/01/19 SUBJECTIVE: The patient seems to be somewhat better. He is feeling better and says that sputum is coming out which is mostly whitish/yellowish color. REVIEW OF SYSTEMS: CONSTITUTIONAL: No night sweats. No fatigue, malaise, lethargy. No fever or chills. HEENT: Eyes: No visual changes. No eye pain. No eye discharge. ENT: No runny nose. No epistaxis. No sinus pain. No sore throat. No odynophagia. No congestion. RESPIRATORY: No cough, no congestion. No hemoptysis. No shortness of breath. CARDIOVASCULAR: No angina symptoms. No CHF symptoms. No atypical chest pain for CAD. No palpitations. No PND. No orthopnea. Pleuritic pain has subsided. GASTROINTESTINAL: No abdominal pain. No nausea or vomiting. No diarrhea or constipation. No hematemesis. No hematochezia. Appetites has improved. GENITOURINARY: No urgency. No frequency. No dysuria. No hematuria. No obstructive symptoms. No discharge. No pain. No significant abnormal bleeding. MUSCULOSKELETAL: No musculoskeletal pain; no joint swelling. NEUROLOGICAL: No headache. No neck pain. No syncope. No seizures. No dizziness. PSYCHIATRIC: Not anxious. No depression. No suicidal thoughts. No homicidal thoughts. SKIN: No rash. No lesions. No wounds. ENDOCRINE: No unexplained weight loss. No weight gain. HEMATOLOGIC/LYMPHATIC: No anemia. No purpura. No petechiae. No prolonged or excessive bleeding. No palpable lymph nodes. PHYSICAL EXAMINATION: HEENT: Head normocephalic, atraumatic. Eyes: Extraocular muscles are intact. Pupils are equal, round and reactive to light and accommodation. Ears: No lesions. Nose appeared normal. Throat: No exudate or erythema. NECK: Supple. No JVD, no carotid bruit. No lymphadenopathy or thyromegaly. LUNGS: Decreased breath sounds with crepitations of the right side. Percussion note normal. Chest symmetrical. HEART: S1, S2, no S3. Grade II/ systolic murmurs. No cyanosis or clubbing. No ascites. Pulses: Dorsalis pedis and posterior tibial pulses +1 to +2 bilaterally. ABDOMEN: Soft. Nontender. Bowel sounds active. No CVA tenderness. No mass felt. EXTREMITIES: No edema. Full range of motion of all extremities, equal. NEUROLOGIC: No focal deficit. Cranial nerves II through XII are grossly intact. No headache, no double vision or headache. SKIN: Not dry. Intact. Turgor - normal. LYMPHATIC: No palpable lymph nodes/no lymphedema. MUSCULOSKELETAL: Normal joints with no swelling. Muscle tone is normal. ASSESSMENT: 1. Bilateral pneumonia seems to be resolving, clinically 2. Chronic lung disease PLAN: 1. The patient was explained about liver cirrhosis and portal hypertension and need for EGD and colonoscopy to which he has agreed. He is chronic anemia. 2. Will do ammonia level, T4 and TSH 3. Continue antibiotics and NEBS. 4. The patient has not been drinking at all for past several years. Used to drink fairly heavy amount in the past. CONDITION: Stable. TIME SPENT: More than 30 minutes. Plan and coordination of the patient's care discussed in the presence of nurse. ANGLE
--- NOTE | 2019-10-04 11:14 | PCM.PROG ---
Attending Provider: ATTENDING PROVIDER: Dr. SULEIMAN BROCK DATE OF SERVICE: 10/03/19 SUBJECTIVE: This 79 year old /WHITE M was hospitalized 09/29/19 with double pneumonia. The patient's pneumonia clinically seems to have been resolving. Echocardiogram did not show any significant valvular problems. It showed calcified aortic valves with mild aortic stenosis, LVH with enlarged LA cavity. REVIEW OF SYSTEMS: CONSTITUTIONAL: No night sweats. No fatigue, malaise, lethargy. No fever or chills. HEENT: Eyes: No visual changes. No eye pain. No eye discharge. ENT: No runny nose. No epistaxis. No sinus pain. No odynophagia. No congestion. RESPIRATORY: Mild cough. No hemoptysis. No shortness of breath. CARDIOVASCULAR: No angina symptoms. No CHF symptoms. No atypical chest pain for CAD. No palpitations. No orthopnea. GASTROINTESTINAL: No abdominal pain. No nausea or vomiting. No diarrhea or constipation. No hematemesis. No hematochezia. GENITOURINARY: No urgency. No frequency. No dysuria. No hematuria. No obstructive symptoms. No discharge. No pain. No significant abnormal bleeding. MUSCULOSKELETAL: No musculoskeletal pain; no joint swelling. NEUROLOGICAL: Awake, alert, oriented to time, place and person. No headache. No neck pain. No syncope. No seizures. No dizziness. PSYCHIATRIC: Not anxious. No depression. No suicidal thoughts. No homicidal thoughts. SKIN: No rash. No lesions. No wounds. ENDOCRINE: No unexplained weight loss. No weight gain. HEMATOLOGIC/LYMPHATIC: No anemia. No purpura. No petechiae. No prolonged or excessive bleeding. No palpable lymph nodes. PHYSICAL EXAMINATION: GENERAL: The patient is awake, alert and oriented, lying/sitting in bed in no distress. VITAL SIGNS: Temperature 97.4 F, Pulse 73, Respiratory Rate 18, BP 148/74, Pulse Ox 91% HEENT: Head normocephalic, atraumatic. Eyes: Extraocular muscles are intact. Pupils are equal, round and reactive to light and accommodation. Ears: No lesi ons. Nose appeared normal. Throat: No exudate or erythema. NECK: Supple. No JVD, no carotid bruit. No lymphadenopathy or thyromegaly. LUNGS: Decreased breath sounds with right-sided dry creps. Percussion note normal. Chest symmetrical. HEART: S1, S2, no S3. Grade I to II/ systolc murmur. No cyanosis or clubbing. No ascites. Pulses: Dorsalis pedis and posterior tibial pulses +1 to +2 both sides. ABDOMEN: Soft. Non-tender. Bowel sounds active. No CVA tenderness. No mass felt. EXTREMITIES: No edema. Full range of motion of all extremities, equal. NEUROLOGIC: No focal deficit. Cranial nerves II through XII are grossly intact. No headache, no double vision or headache. SKIN: Warm and dry. Intact. Turgor-normal. LYMPHATIC: No palpable lymph nodes/no lymphedema. MUSCULOSKELETAL: Normal joints with no swelling. Muscle tone is normal. LAB REVIEW: 10/03/19 07:05 10/03/19 07:05 10/03/19 07:05: Sodium 137.6, Potassium 4.05, Chloride 108.8 H, Carbon Dioxide 21.7 L, Anion Gap 11.15, BUN 22.9 H, Creatinine 0.85, Estimated GFR (MDRD) 87.00, BUN/Creatinine Ratio 26.94, Glucose 212.3 H, Calcium 8.85, Total Bilirubin 1.53 H, AST 46.9, ALT 32.8, Alkaline Phosphatase 90.8, Total Protein 7.31, Albumin 3.42 L, Globulin 3.89, Albumin/Globulin Ratio 0.87 10/03/19 07:05: WBC 11.69 H, RBC 3.27 L, Hgb 11.2 L, Hct 32.9 L, MCV 100.6 H, MCH 34.3 H, MCHC 34.0, RDW Coeff of Duy 15.9 H, Plt Count 169, Immature Gran % (Auto) 2.2, Neut % (Auto) 80.7, Lymph % (Auto) 8.3 L, [place] % (Auto) 8.5, Eos % (Auto) 0.0, Baso % (Auto) 0.3, Immature Gran # (Auto) 0.3, Neut # (Auto) 9.4 H, Lymph # (Auto) 1.0, [place] # (Auto) 1.0, Eos # (Auto) 0.0, Baso # (Auto) 0.0 ASSESSMENT: Please see below. 1. Pneumonia seems to be resolving. 2. The patient was explained in detail about cholelithiasis, liver cirrhosis and portal hypertension. PLAN: 1. D/C IV fluids. 2. Have the patient up and about. 3. Ferritin level 4. Transferrin level 5. Protime 6. Nadolol 40 mg daily 7. Decrease Micardis to 1/2 tablet a day 8. Hepatitis profile 9. Will set the patient up for GI consultation with Dr. Min for anemia, liver cirrhosis and portal hypertension. Plan and coordination of the patient's care discussed in the presence of Information Management Manager and nurse. CONDITION: Stable SCRIBED BY: MAXIMO OLIVER Shelter Monitor scribed while in presence of service performed by Dr. SULEIMAN BROCK on 10/03/19 ([id number])
--- NOTE | 2019-10-04 13:14 | PN ---
DATE OF SERVICE: 10/02/19 SUBJECTIVE: The patient was seen and examined this morning. also was present and spoke with her about the patient's condition. The patient is feeling a lot better. REVIEW OF SYSTEMS: CONSTITUTIONAL: No night sweats. Fatigue and weakness. No fever or chills. HEENT: Eyes: No visual changes. No eye pain. No eye discharge. ENT: No runny nose. No epistaxis. No sinus pain. No sore throat. No odynophagia. No congestion. RESPIRATORY: Cough, Congestion. No hemoptysis. No shortness of breath. CARDIOVASCULAR: No angina symptoms. No CHF symptoms. No atypical chest pain for CAD. No palpitations. No PND. No orthopnea. GASTROINTESTINAL: No abdominal pain. No nausea or vomiting. No diarrhea or constipation. No hematemesis. No hematochezia. GENITOURINARY: No urgency. No frequency. No dysuria. No hematuria. No obstructive symptoms. No discharge. No pain. No significant abnormal bleeding. MUSCULOSKELETAL: No musculoskeletal pain; no joint swelling. NEUROLOGICAL: No headache. No neck pain. No syncope. No seizures. No dizziness. PSYCHIATRIC: Not anxious. No depression. No suicidal thoughts. No homicidal thoughts. SKIN: No rash. No lesions. No wounds. ENDOCRINE: No unexplained weight loss. No weight gain. HEMATOLOGIC/LYMPHATIC: No anemia. No purpura. No petechiae. No prolonged or excessive bleeding. No palpable lymph nodes. PHYSICAL EXAMINATION: VITAL SIGNS: Temperature 97.6, pulse 80, respiratory rate 20, blood pressure 146/70 and pulse ox 91% HEENT: Head normocephalic, atraumatic. Eyes: Extraocular muscles are intact. Pupils are equal, round and reactive to light and accommodation. Ears: No lesions. Nose appeared normal. Throat: No exudate or erythema. NECK: Supple. No JVD, no carotid bruit. No lymphadenopathy or thyromegaly. LUNGS: Decreased breath sounds with mild wheeze. Right sided crepitation noted on lung auscultation findings. Percussion note normal. Chest symmetrical. HEART: S1, S2, no S3. No murmurs. No cyanosis or clubbing. No ascites. Pulses: Dorsalis pedis and posterior tibial pulses +1 to +2 bilaterally. ABDOMEN: Soft. Nontender. Bowel sounds active. No CVA tenderness. No mass felt. EXTREMITIES: No edema. Full range of motion of all extremities, equal. NEUROLOGIC: No focal deficit. Cranial nerves II through XII are grossly intact. No headache, no double vision or headache. SKIN: Not dry. Intact. Turgor - normal. LYMPHATIC: No palpable lymph nodes/no lymphedema. MUSCULOSKELETAL: Normal joints with no swelling. Muscle tone is normal. LABS: Hgb 11.4, hct 34, WBC 14,000 normal differential, creatinine 0.8, BUN 20, potassium 2.1 and all labs yesterday ASSESSMENT: 1. Pneumonia seems to be resolved. Chest x-ray done yesterday showed that PLAN: 1. Continue antibiotics, NEBS and steroids. 2. The patient's echocardiogram was done which showed calcific aortic valves with maybe mild aortic stenosis. The patient has LVH with enlarged LA cavity CONDITION: Stable. Improving The patient has been thoroughly explained about liver cirrhosis and the cause of it very likely alcohol abuse in the past along with a component of probably obesity. The patient strongly advised to lose weight. Advised to lose at least 25-30 pounds and that may help. Over all cardiovascular disease and may help liver cirrhosis. The patient has been thoroughly explained about need for EGD and colonoscopy to which he has agreed. TIME SPENT: More than 30 minutes. Plan and coordination of the patient's care discussed in the presence of nurse. ANGLE
[2019-10-05] MEDS: DUONEB NEB SCH ×3 (04:50→14:29)
[2019-10-05] MEDS: SYNTHROID PO SCH ×2 (05:42)
[2019-10-05] MEDS: AZACTAM 1 GM in SODIUM CHLORIDE 50 ML IV SCH ×2 (05:42→14:35)
[2019-10-05] MEDS: HUMULIN R SUBCUT PRN (06:29)
[2019-10-05] MEDS: PROTONIX PO SCH (06:33)
[2019-10-05] MEDS: VITAMIN D PO SCH (09:14)
[2019-10-05] MEDS: CORGARD PO SCH (09:14)
[2019-10-05] MEDS: PROSCAR PO SCH (09:14)
[2019-10-05] MEDS: DOXYCYCLINE HYCLATE PO SCH (09:14)
[2019-10-05] MEDS: MICARDIS PO SCH (09:15)
[2019-10-05] MEDS: LOVENOX SUBCUT SCH (09:15)
[2019-10-05] MEDS: PREDNISONE PO SCH (09:15)
[2019-10-05] MEDS: FLOMAX PO SCH (09:15)
[2019-10-05 14:27] VITALS: BP 147/70; TEMP 98.5
--- NOTE | 2019-10-05 15:32 | DI ---
EXAM: Chest two views Date: 10/05/2019 Comparison: Chest x-ray 10/01/2019 History: Shortness of breath FINDINGS: PA and lateral views of the chest obtained. Cardiac silhouette is normal. There is pulmona ry vascular congestion. There is bilateral diffuse interstitial edema unchanged. There is worsening left-sided alveolar edema or pneumonia. Small right pleural effusion and right basilar atelectasis and / or infiltrate is unchanged. No pneumothorax. Impression: No significant change in pulmonary vascular congestion and bilateral interstitial edema or pneumonia. However, there is worsening alveolar edema or pneumonia in the left lung lungs. Stabl e right basilar infiltrate and / or atelectasis.
[2019-10-05] MEDS ORDERED: ROCEPHIN 1 GM/50 ML D5W 1 GM/50 ML BAG IV SCH (21:00)
--- NOTE | 2019-10-06 08:17 | PN ---
DATE OF SERVICE: 10/05/19 SUBJECTIVE: The patient was seen and examined this morning. The patient's condition is more or less stable with some deterioration maybe in his mood. REVIEW OF SYSTEMS: CONSTITUTIONAL: No night sweats. No fatigue, malaise, lethargy. No fever or chills. HEENT: Eyes: No visual changes. No eye pain. No eye discharge. ENT: No runny nose. No epistaxis. No sinus pain. No sore throat. No odynophagia. No congestion. RESPIRATORY: No cough, no congestion. No hemoptysis. No shortness of breath. CARDIOVASCULAR: No angina symptoms. No CHF symptoms. No atypical chest pain for CAD. No palpitations. No PND. No orthopnea. GASTROINTESTINAL: No abdominal pain. No nausea or vomiting. No diarrhea or constipation. No hematemesis. No hematochezia. GENITOURINARY: No urgency. No frequency. No dysuria. No hematuria. No obstructive symptoms. No discharge. No pain. No significant abnormal bleeding. MUSCULOSKELETAL: No musculoskeletal pain; no joint swelling. NEUROLOGICAL: No headache. No neck pain. No syncope. No seizures. No dizziness. PSYCHIATRIC: Not anxious. No depression. No suicidal thoughts. No homicidal thoughts. SKIN: No rash. No lesions. No wounds. ENDOCRINE: No unexplained weight loss. No weight gain. HEMATOLOGIC/LYMPHATIC: No anemia. No purpura. No petechiae. No prolonged or excessive bleeding. No palpable lymph nodes. PHYSICAL EXAMINATION: HEENT: Head normocephalic, atraumatic. Eyes: Extraocular muscles are intact. Pupils are equal, round and reactive to light and accommodation. Ears: No lesions. Nose appeared normal. Throat: No exudate or erythema. NECK: Supple. No JVD, no carotid bruit. No lymphadenopathy or thyromegaly. LUNGS: Good air entry. Clear to auscultation. Percussion note normal. Chest symmetrical. Hemoptysis which seems to have increased in frequency. HEART: S1, S2, no S3. No murmurs. No cyanosis or clubbing. No ascites. Pulses: Dorsalis pedis and posterior tibial pulses +1 to +2 bilaterally. ABDOMEN: Soft. Nontender. Bowel sounds active. No CVA tenderness. No mass felt. EXTREMITIES: No edema. Full range of motion of all extremities, equal. NEUROLOGIC: No focal deficit. Cranial nerves II through XII are grossly intact. No headache, no double vision or headache. SKIN: Not dry. Intact. Turgor - normal. LYMPHATIC: No palpable lymph nodes/no lymphedema. MUSCULOSKELETAL: Normal joints with no swelling. Muscle tone is normal. The family wants patient to be seen by pulmonary physician and I agreed with them. I tried to find physician the patient. Cardiovascular status is stable. Respiratory status seems to be abnormal but stable. ABG on 45% Vapotherm is acceptable with pO2 more than 70 with saturation 93% with normal pH. PLAN: 1. Continue IV antibiotics Rocephin. 2. PO Doxycycline 3. IV Azactam 4. The patient is going to be transferred. CONDITION: Stable TIME SPENT: More than 30 minutes. Plan and coordination of the patient's care discussed in the presence of nurse. ANGLE
--- NOTE | 2019-10-06 08:18 | PN ---
09/29/19: Level 5 09/30/19: Intermediate 10/01/19: Intermediate 10/02/19: Intermediate 10/03/19: Extensive 10/04/19: Intermediate 10/05/18: D as in discharge MTDD
--- NOTE | 2019-10-06 08:32 | ECHO2D ---
Date of Exam: 10/02/19 Ordering Physician: DR. SULEIMAN BROCK Room #: SCU3 Reason for Echo: SOB M-Mode Normal Adult Results LV Dimensions Normal Adult Results AoV Opening excursions >1.6 1.5 LVEDD-base- 3.5-5.8 5.7 Ao root dimensions 2.0-3.7 4.0 LVESD-base- 3.1-4.6 L. Atrium dimensions 1.9-3.8 4.7 Post. Wall thickness 0.8-1.1 1.4 IV septum (thickness) 0.7-1.2 1.4 Post. Wall excursion 0.72-1.3 NORMAL Septal motion NORMAL Systolic motion R. Ventricular cavity 1.5-2.0 NORMAL LVEF 60% 62% Paradoxical septal wall motion NORMAL 2-D : CALCIFIC AORTIC VALVES--GOOD SEPARATION OF THE LEAFLETS--NORMAL LEFT VENTRICULAR CONTRACTILITY--ENLARGED LEFT ATRIAL CAVITY AND BORDERLINE LEFT VENTRICLE CAVITY--NO EFFUSION, NO THROMBUS M-MODE: MV: NORMAL AV: CALCIFIC AORTIC VALVES TV: NORMAL PV: NORMAL CHAMBER SIZE: ENLARGED LEFT ATRIAL CAVITY--BORDERLINE LEFT VENTRICLE CAVITY WALL MOTION: NORMAL PERICARDIUM: NORMAL INTERPRETATION: 1. LEFT VENTRICULAR HYPERTROPHY WITH ENLARGED LEFT ATRIAL CAVITY 2. BORDERLINE LEFT VENTRICULAR CAVITY--NORMAL LEFT VENTRICLE CAVITY 3. CALCIFIC AORTIC BROCK--MAYBE MILD AORTIC STENOSIS MTDD
--- NOTE | 2019-10-06 11:12 | PN ---
DATE OF SERVICE: 10/03/19 SUBJECTIVE: The patient had hemoptysis to mousy blood tinged sputum mixed with blood. After that the patient didn't have any hemoptysis. Sputum was mixed with yellow or greenish color. The patient at that time has an oxygen saturation of 85%. He came from the bathroom. Without oxygen the patient's saturation has been dropping into 80's. No extra shortness of breath. The patient is short of breath on minimal exertion This morning he had indicated that he gets short of breath but feels better with oxygen. REVIEW OF SYSTEMS: CONSTITUTIONAL: No night sweats. No fatigue, malaise, lethargy. No fever or chills. HEENT: Eyes: No visual changes. No eye pain. No eye discharge. ENT: No runny nose. No epistaxis. No sinus pain. No sore throat. No odynophagia. No congestion. RESPIRATORY: No cough, no congestion. No hemoptysis. No shortness of breath. CARDIOVASCULAR: No angina symptoms. No CHF symptoms. No atypical chest pain for CAD. No palpitations. No PND. No orthopnea. GASTROINTESTINAL: No abdominal pain. No nausea or vomiting. No diarrhea or constipation. No hematemesis. No hematochezia. GENITOURINARY: No urgency. No frequency. No dysuria. No hematuria. No obstructive symptoms. No discharge. No pain. No significant abnormal bleeding. MUSCULOSKELETAL: No musculoskeletal pain; no joint swelling. NEUROLOGICAL: No headache. No neck pain. No syncope. No seizures. No dizziness. PSYCHIATRIC: Not anxious. No depression. No suicidal thoughts. No homicidal thoughts. SKIN: No rash. No lesions. No wounds. ENDOCRINE: No unexplained weight loss. No weight gain. HEMATOLOGIC/LYMPHATIC: No anemia. No purpura. No petechiae. No prolonged or excessive bleeding. No palpable lymph nodes. PHYSICAL EXAMINATION: HEENT: Head normocephalic, atraumatic. Eyes: Extraocular muscles are intact. Pupils are equal, round and reactive to light and accommodation. Ears: No lesions. Nose appeared normal. Throat: No exudate or erythema. NECK: Supple. No JVD, no carotid bruit. No lymphadenopathy or thyromegaly. LUNGS: Clear to auscultation. Percussion note normal. Chest symmetrical. Hemoptysis HEART: S1, S2, no S3. No murmurs. No cyanosis or clubbing. No ascites. Pulses: Dorsalis pedis and posterior tibial pulses +1 to +2 bilaterally. ABDOMEN: Soft. Nontender. Bowel sounds active. No CVA tenderness. No mass felt. EXTREMITIES: No edema. Full range of motion of all extremities, equal. NEUROLOGIC: No focal deficit. Cranial nerves II through XII are grossly intact. No headache, no double vision or headache. SKIN: Not dry. Intact. Turgor - normal. LYMPHATIC: No palpable lymph nodes/no lymphedema. MUSCULOSKELETAL: Normal joints with no swelling. Muscle tone is normal. LABS: The patient had venous scan which was negative for any thrombus. Later on under went CT angiogram which was negative for pulmonary embolism but then that x-ray it was noted that the pneumonia may have worsened with some effusion. Effusion was present on the last CT scan. ASSESSMENT: 1. Community acquired pneumonia with possibility of pseudomonas with Beta- Lactam the patient is going to be covered with Azactam. Rest of the organism like h.influenzae, strep, pneumoniae, Klebsiella pneumoniae, staph are already covered with the combination. PLAN: 1. Continue Zithromax which has already been getting it for 5 days at 500mg PO 2. Continue Rocephin 3. Add Doxycycline 100mg BID 4. Azactam 1 gram Q 8 hours The patient's oxygen saturation with high flow oxygen is 93%. There was possibility of interstitial edema. The patient was given 20mg of Lasix. The patient had put out approximately 500cc within a couple of hours. When I examined the patient in the afternoon the patient was already feeling better just with the oxygen. His other treatment were started later on. was present in the room. All the diagnosis were discussed along with liver cirrhosis with portal hypertension and cholelithiasis. TIME SPENT: In the afternoon session face to face was more than an hour. CONDITION: Stable PROGNOSIS: Guarded Plan and coordination of the patient's care discussed in the presence of nurse. ANGLE
--- NOTE | 2019-10-06 11:53 | PN ---
DATE OF SERVICE: 10/04/19 SUBJECTIVE: The patient was seen today and the patient is doing a lot better. His appetite has improved. He ate all breakfast and lunch. He is less short of breath. His color looks a lot better. Oxygen saturation with 3 liters of high flow is anywhere between 92-95%. REVIEW OF SYSTEMS: CONSTITUTIONAL: No night sweats. No fatigue, malaise, lethargy. No fever or chills. HEENT: Eyes: No visual changes. No eye pain. No eye discharge. ENT: No runny nose. No epistaxis. No sinus pain. No sore throat. No odynophagia. No congestion. RESPIRATORY: No cough, no congestion. No hemoptysis. Mild shortness of breath on exertion not as much as what he had before. CARDIOVASCULAR: No angina symptoms. No CHF symptoms. No atypical chest pain for CAD. No palpitations. No PND. No orthopnea. GASTROINTESTINAL: No abdominal pain. No nausea or vomiting. No diarrhea or constipation. No hematemesis. No hematochezia. Appetite has improved. GENITOURINARY: No urgency. No frequency. No dysuria. No hematuria. No obstructive symptoms. No discharge. No pain. No significant abnormal bleeding. MUSCULOSKELETAL: No musculoskeletal pain; no joint swelling. NEUROLOGICAL: No headache. No neck pain. No syncope. No seizures. No dizziness. PSYCHIATRIC: Not anxious. No depression. No suicidal thoughts. No homicidal thoughts. SKIN: No rash. No lesions. No wounds. ENDOCRINE: No unexplained weight loss. No weight gain. HEMATOLOGIC/LYMPHATIC: No anemia. No purpura. No petechiae. No prolonged or excessive bleeding. No palpable lymph nodes. PHYSICAL EXAMINATION: HEENT: Head normocephalic, atraumatic. Eyes: Extraocular muscles are intact. Pupils are equal, round and reactive to light and accommodation. Ears: No lesions. Nose appeared normal. Throat: No exudate or erythema. NECK: Supple. No JVD, no carotid bruit. No lymphadenopathy or thyromegaly. LUNGS: Good air entry on the right side with few crepitations. Left lung seems to be clear. Percussion note normal. Chest symmetrical. HEART: S1, S2, no S3. No murmurs. No cyanosis or clubbing. No ascites. Pulses: Dorsalis pedis and posterior tibial pulses +1 to +2 bilaterally. ABDOMEN: Soft. Nontender. Bowel sounds active. No CVA tenderness. No mass felt. EXTREMITIES: No edema. Full range of motion of all extremities, equal. NEUROLOGIC: No focal deficit. Cranial nerves II through XII are grossly intact. No headache, no double vision or headache. SKIN: Not dry. Intact. Turgor - normal. LYMPHATIC: No palpable lymph nodes/no lymphedema. MUSCULOSKELETAL: Normal joints with no swelling. Muscle tone is normal. ASSESSMENT: 1. Pneumonia bilateral seems to be improving clinically. Yesterday there was a set back. The patient is now being treated with Rocephin, Azactam and Doxycycline. Solu-Cortef is going to be discontinued. The patient is going to be started on 20mg Prednisone daily. 2. Fluid overload with possibility of interstitial edema 20mg of Lasix was given. The patient had nearly 4,000cc urine output 3. Liver cirrhosis with portal hypertension discussed with the family members. The patient has borderline pneumonia level. INR is 1.5 makes the comorbidity somewhat critical. The patient has bilateral community acquired pneumonia possibility the patient has community acquired bilateral pneumonia with sort of hemoptysis yesterday with 2 plugs with the blood. This morning he had two more mucus plugs measuring around 1.5cm around with yellowish to greenish sputum PLAN: 1. Treat patient for possibility of strep pneumoniae mycoplasma pneumoniae, klebsiella and pseudomonas. 2. The patient is going to be continued on beta lactam, Rocephin and Azactam and Doxycycline. 3. His kidney functions are stable. CONDITION: Stable. TIME SPENT: More than 30 minutes. Plan and coordination of the patient's care discussed in the presence of nurse. ANGLE
--- NOTE | 2019-10-09 18:49 | ED.PDOC ---
General ED Provider: Dr. MIR ALBRIGHT Chief Complaint: Shortness of Air Stated Complaint: hx of progressively worsening congestion and shortness of breath Time Seen by Physician: 11:00 Mode of Arrival: Walk-In Information Source: Patient Exam Limitations: No limitations Primary Care Provider: SULEIMAN BROCK Nursing and Triage Documentation Reviewed and Agree: Yes Does patient meet sepsis criteria?: No System Inflammatory Response Syndrome: Not Applicable Sepsis Protocol: For patient's 13 years and over: Temp is 96.8 and below OR 101 and greater Pulse >90 BPM Resp >20/minute Acutely Altered Mental Status Are patient's symptoms suggestive of a new infection, such as: -Pneumonia -Skin, Soft Tissue -Endocarditis -UTI -Bone, Joint Infection -Implantable Device -Acute Abdominal Infection -Wound Infection -Meningitis -Blood Stream Catheter Infection -Unknown Respiratory Complaint Exam Shortness of Air Complaint/Exam Onset/Duration: 24 hrs Symptoms Are: Still present and Worse Timing: Constant Initial Severity: Mild Current Severity: Moderate Character: Reports Dyspnea at rest and Dyspnea on exertion Aggravating: Reports Movement, Deep breaths and Recumbent position Alleviating: Reports None Associated Signs and Symptoms: Reports Cough, Wheezing and Nasal congestion Related History: Denies Similar episode History of Healthcare-Acquired Pneumonia: No Pulmonary Embolism Risk Factors: Reports None Pseudomonas Risk Factors: Reports None Tuberculosis Risk Factors: Reports None Home Oxygen Use: No Recent Stress Test: No Recent Echo/LV Function: No Respiratory Distress: Mild Stridor Present: No Tracheal Deviation: No Subcutaneous Emphysema: No Accessory Muscle Use: No Retractions: Not Present Diminished Breath Sounds: No Unable to Speak Full Sentences: No Fatigue: Yes Leg Swelling: Yes Alfred's Sign Present: No Grunting Respirations: No Kussmaul Respirations: No Differential Diagnoses: Pulmonary Edema and Pneumonia Quality Indicators for AMI: EKG in 10min. Related Surgical History: Reports None Review of Systems Review Of Systems Constitutional: Reports No symptoms Eyes: Reports No symptoms Ears, Nose, Mouth, Throat: Reports No symptoms Respiratory: Reports Cough, Orthopnea, Short of air and Wheezing Cardiac: Reports No symptoms GI: Reports No symptoms : Reports No symptoms Musculoskeletal: Reports No symptoms Skin: Reports No symptoms Neurological: Reports No symptoms Endocrine: Reports No symptoms Hematologic/Lymphatic: Reports No symptoms All Other Systems: Reviewed and Negative COUNT INCLUDES [facility] Medical History Aortic aneurysm (Acute) Diabetes (Acute) Enlarged prostate (Acute) Hypertension (Acute) Hypothyroid (Acute) Pneumonia (Acute) Family History Mother Cancer of lung Social History History of recent travel: No Physical Exam Physical Exam Appearance: Ill-appearing and Obese Ill-appearing: Mild Pain Distress: None Eyes: DA, EOMI and Conjunctiva clear ENT: Ears normal, Nose normal and Oropharynx normal Neck: Supple Respiratory: Airway patent, Breath sounds clear, Breath sounds diminished, Respirations nonlabored, Crackles and Wheezes Cardiovascular: RRR, Pulses normal, No rub and No murmur GI/: Soft, Nontender, No masses, Bowel sounds normal and No Organomegaly Musculoskeletal: Normal strength, ROM intact, No edema and No calf tenderness Skin: Warm, Dry and Normal color Neurological: Sensation intact, Motor intact, Reflexes intact, Cranial nerves intact, Alert and Oriented Psychiatric: Affect appropriate and Mood appropriate Interpretation Radiology Interpretation Radiology Interpretation By: Radiologist Exam Interpreted: CXR (pneumonia) Physician Notification Case Discussed Physician Notified: Dr Brock for admisson -agreed Time of Notification: 14:00 Critical Care Note Critical Care Note Total Time (mins): 30 Course Course Hematology/Chemistry: 10/05/19 04:15 10/05/19 04:15 Orders, Labs, Meds: Lab Review 09/29/19 09/29/19 09/29/19 11:30 11:45 11:45 WBC 7.86 RBC 3.69 L Hgb 12.4 L Hct 37.5 L MCV 101.6 H MCH 33.6 H MCHC 33.1 RDW Coeff of Duy 16.0 H Plt Count 231 Immature Gran % (Auto) 1.0 Neut % (Auto) 47.8 Lymph % (Auto) 30.8 [place] % (Auto) 9.4 Eos % (Auto) 9.0 H Baso % (Auto) 2.0 Immature Gran # (Auto) 0.1 Neut # (Auto) 3.8 Lymph # (Auto) 2.4 [place] # (Auto) 0.7 Eos # (Auto) 0.7 Baso # (Auto) 0.2 Puncture Site R rad O2 Saturation 93.0 L ABG pH 7.426 ABG pCO2 28.8 L ABG pO2 65.0 L ABG HCO3 18.9 L ABG Total CO2 20 L ABG Base Excess -5 L Hakeem Test + FiO2 % 21.0 Sodium 141.4 Potassium 4.21 Chloride 109.9 H Carbon Dioxide 20.8 L Anion Gap 14.91 BUN 12.9 Creatinine 1.00 Estimated GFR (MDRD) 72.00 BUN/Creatinine Ratio 12.90 Glucose 193.2 H Calcium 9.52 Total Bilirubin 1.30 AST 36.5 ALT 18.6 Alkaline Phosphatase 111.7 Total Creatine Kinase 44.1 L Total Protein 8.03 Albumin 3.62 Globulin 4.41 Albumin/Globulin Ratio 0.82 Orders Category Date Time Status ADMIT PATIENT INPATIENT .TO [facility] (MONITORED BED) ADMISSION 09/29/19 13:49 Active ABG DRAW REQUEST Stat CARDIO 09/29/19 13:03 Completed EKG-(ED ONLY) Stat CARDIO 09/29/19 13:03 Completed OXYGEN Routine CARDIO 09/29/19 11:30 Completed TELEMETRY MONITORING TELE CARE 09/29/19 13:53 Active ARTERIAL BLOOD GAS [ABG] Stat LAB 09/29/19 11:30 Completed BLOOD CULTURE (ED ONLY) Stat LAB 09/29/19 11:40 Completed BLOOD CULTURE (ED ONLY) Stat LAB 09/29/19 11:45 Completed CBC W/ AUTO DIFF Stat LAB 09/29/19 11:45 Completed CMP [COMPREHENSIVE METABOLIC PANEL] Stat LAB 09/29/19 11:45 Completed CPK [CREATINE KINASE] Stat LAB 09/29/19 11:45 Completed SPUTUM CULTURE Stat LAB 09/29/19 17:20 Completed Azithromycin [Zithromax] MEDS 09/29/19 13:16 Discontinued 500 mg PO ONCE STA Ceftriaxone/D5w 1 gm Premix [Rocephin 1 gm/50 ml D5w] MEDS 09/29/19 13:16 Discontinued 1 gm in 50 ml IV ONCE Methylprednisolone Sod Succ/Pf [Solu-Medrol 125 mg] MEDS 09/29/19 13:16 Discontinued 125 mg IVP ONCE STA Sodium Chloride 0.9% [Sodium Chloride] 1,000 ml MEDS 09/29/19 13:30 Disc ontinued IV 125 mls/hr CHEST, 1V AP ONLY Stat RADS 09/29/19 11:30 Completed Medications Discontinued Medications Generic Name Dose Route Start Last Admin Trade Name Freq PRN Reason Stop Dose Admin Acetaminophen 650 mg 09/29/19 14:40 Tylenol PO Q4H PRN Fever >101 Albuterol/Ipratropium 3 ml 09/29/19 20:00 10/05/19 14:29 Duoneb NEB 3 ml RTQID JOCELIN Administration Azithromycin 500 mg 09/29/19 13:16 09/29/19 13:57 Zithromax PO 09/29/19 13:17 500 mg ONCE STA Administration Azithromycin 500 mg 09/30/19 09:00 10/02/19 08:50 Zithromax PO 10/03/19 08:59 500 mg DAILY JOCELIN Administration Cholecalciferol 1,200 unit 09/29/19 15:00 10/05/19 09:14 Vitamin D PO 1,200 unit DAILY JOCELIN Administration Doxycycline Hyclate 100 mg 10/03/19 19:00 10/04/19 07:00 Doxycycline Hyclate PO 10/06/19 18:59 Not Given Q12H JOCELIN Doxycycline Hyclate 100 mg 10/04/19 09:00 10/05/19 09:14 Doxycycline Hyclate PO 10/06/19 18:59 100 mg Q12HR JOCELIN Administration Enoxaparin Sodium 40 mg 09/29/19 15:00 10/05/19 09:15 Lovenox SUBCUT 40 mg DAILY JOCELIN Administration Finasteride 5 mg 09/30/19 09:00 10/05/19 09:14 Proscar PO 5 mg DAILY JOCELIN Administration Furosemide 20 mg 10/03/19 18:33 10/03/19 19:06 Lasix IVP 10/03/19 18:34 20 mg ONCE STA Administration CEFTRIAXONE/D5W 1 GM PREMIX 1 gm in 50 mls @ 75 mls/hr 09/29/19 13:16 09/29/19 13:58 Rocephin 1 Gm/50 Ml D5w IV 09/29/19 13:55 75 mls/hr ONCE STA Administration Sodium Chloride 1,000 mls @ 125 mls/hr 09/29/19 13:30 09/29/19 13:57 Sodium Chloride IV 125 mls/hr .Q8H JOCELIN Administration Sodium Chloride 1,000 mls @ 75 mls/hr 09/29/19 15:00 10/02/19 22:03 Sodium Chloride IV 75 mls/hr .[id number] JOCELIN Administration CEFTRIAXONE/D5W 1 GM PREMIX 1 gm in 50 mls @ 75 mls/hr 09/30/19 09:00 10/04/19 09:02 Rocephin 1 Gm/50 Ml D5w IV 10/05/19 08:59 75 mls/hr DAILY JOCELIN Administration Aztreonam 1 gm/ Sodium 50 mls @ 75 mls/hr 10/03/19 21:00 10/05/19 14:35 Chloride IV 10/06/19 20:59 Not Given Q8HR JOCELIN CEFTRIAXONE/D5W 1 GM PREMIX 1 gm in 50 mls @ 75 mls/hr 10/05/19 21:00 Rocephin 1 Gm/50 Ml D5w IV 10/08/19 20:59 DAILY JOCELIN Insulin Human Regular 0 unit 09/30/19 20:14 10/05/19 06:29 Humulin R SUBCUT 4 unit PRN PRN Administration Hyperglycemia Protocol Levothyroxine Sodium 100 mcg 09/30/19 06:30 10/05/19 05:42 Synthroid PO 100 mcg QDAC JOCELIN Administration Levothyroxine Sodium 25 mcg 09/30/19 06:30 10/05/19 05:42 Synthroid PO 25 mcg QDAC JOCELIN Administration Metformin HCl 1,000 mg 09/29/19 17:30 10/03/19 19:14 Glucophage PO Not Given BIDWM JOCELIN Methylprednisolone Sodium Succinate 125 mg 09/29/19 13:16 09/29/19 13:56 Solu-Medrol 125 Mg IVP 09/29/19 13:17 125 mg ONCE STA Administration Methylprednisolone Sodium Succinate 125 mg 09/29/19 21:00 10/04/19 05:28 Solu-Medrol 125 Mg IVP 125 mg Q8HR JOCELIN Administration Nadolol 40 mg 10/03/19 10:00 10/05/19 09:14 Corgard PO 40 mg DAILY JOCELIN Administration Oxycodone HCl 10 mg 09/29/19 15:45 Oxycodone PO TID PRN Pain Pantoprazole Sodium 40 mg 10/04/19 08:30 10/05/19 06:33 Protonix PO 40 mg QDAC JOCELIN Administration Prednisone 20 mg 10/04/19 08:30 10/05/19 09:15 Prednisone PO 20 mg DAILYWM JOCELIN Administration Sodium Chloride 1 syr 12/30/19 13:00 10/05/19 15:12 Saline Flush IVF 1 syr Q8HR JOCELIN Administration Sodium Chloride 1 syr 10/04/19 13:45 10/04/19 10:05 Saline Flush IVF 1 syr PRN PRN Administration Maintain IV Patency Tamsulosin HCl 0.4 mg 09/29/19 21:00 10/05/19 09:15 Flomax PO 0.4 mg BID JOCELIN Administration Telmisartan 40 mg 09/29/19 15:00 10/02/19 08:50 Micardis PO 40 mg DAILY JOCELIN Administration Telmisartan 20 mg 10/03/19 09:00 10/05/19 09:15 Micardis PO 20 mg DAILY JOCELIN Administration Vital Signs: Temp Pulse Resp BP Pulse Ox 09/29/19 11:07 97.7 F 77 16 155/73 H 83 L Discharge Plan Discharge Patient Disposition: ADMITTED INPATIENT Discharge Problem: Bilateral pneumonia ED Provider: MIR ALBRIGHT Condition: Stable Discharge Date/Time: 09/29/19 14:16
--- NOTE | 2019-10-11 14:18 | PN ---
DATE OF SERVICE: 09/29/19 SUBJECTIVE: The patient was seen and examined in the emergency room. the patient has bilateral pneumonia. The patient has cold and cough for the past 7 days, complaining of shortness of breath with cough and congestion, nonexertional chest pain more like a pleuritic pain, right-sided. No PND, no orthopnea. PHYSICAL EXAMINATION: HEENT: Head normocephalic, atraumatic. Eyes: Extraocular muscles are intact. Pupils are equal, round and reactive to light and accommodation. Ears: No lesions. Nose appeared normal. Throat: No exudate or erythema. NECK: Supple. No JVD, no carotid bruit. No lymphadenopathy or thyromegaly. LUNGS: Decreased breath sounds with right-sided more dry crepitations on the left. Percussion note normal. Chest symmetrical. HEART: S1, S2, no S3. No murmurs. No cyanosis or clubbing. No ascites. Pulses: Dorsalis pedis and posterior tibial pulses +1 to +2 bilaterally. ABDOMEN: Soft. Nontender. Bowel sounds active. No CVA tenderness. No mass felt. EXTREMITIES: No pitting edema. Full range of motion of all extremities, equal. NEUROLOGIC: No focal deficit. Cranial nerves II through XII are grossly intact. No headache, no double vision or headache. SKIN: Somewhat dry. Intact. Turgor - normal. LYMPHATIC: No palpable lymph nodes/no lymphedema. MUSCULOSKELETAL: Normal joints with no swelling. Muscle tone is normal. Chest x-ray showed bilateral infiltrate with possibility of bilateral pneumonia. Hgb 12.4, hct 37, WBC 7,800 normal differential, creatinine 1, BUN 12, potassium 4.2. SGPT is 18, CK is 44 low, glucose 193. ASSESSMENT: 1. Bilateral pneumonia with cough, congestion, pleuritic type of pain. PLAN: 1. Admit the patient and treat with IV antibiotics, steroids and nebs treatment. TIME SPENT: More than 30 minutes. Plan and coordination of the patient's care discussed in the presence of nurse. ANGLE
== END 2019-10-05 15:25 | disposition short-term general hospital (02) | DRG 154 ==
LOC: ED 11:07 → SCU 13:49
PROVIDERS: ADMIT Internal Medicine; ATTEND Internal Medicine
DX: I10 Essential (primary) hypertension; K74.60 Unspecified cirrhosis of liver; R06.02 Shortness of breath; E11.9 Type 2 diabetes mellitus without complications; E88.81 Metabolic syndrome and other insulin resistance; R05 Cough; R09.81 Nasal congestion; R06.01 Orthopnea; J96.91 Respiratory failure, unspecified with hypoxia; J18.9 Pneumonia, unspecified organism; R07.81 Pleurodynia